=== PATIENT | female | born 1950 ===

== ENCOUNTER 2017-03-06 13:51 | Observation (INO) | payer MEDICARE, OTHER ==
[2017-03-06] MEDS ORDERED: Sodium Chloride 0.9% 1,000 ML IV STA (14:14)
--- NOTE | 2017-03-06 14:36 | ED PDOC ---
Syncope/Near Syncope/Dizziness Time Seen by Provider: 03/06/17 14:11 Chief Complaint (Nursing): Syncope Chief Complaint (Provider): syncope History Per: Patient History/Exam Limitations: no limitations Onset/Duration Of Symptoms: Mins (prior to arrival ) Activity At Onset Of Symptoms: Standing Additional Complaint(s): Ruby Mccann is a 67 year old female, with a previous medical history of hypertension, diabetes and hypercholesteolemia, who presents to the ED via EMS after a syncopal episode she sustained prior to arrival. Patient reports to standing outside in the hot weather for 45 minutes waiting for the bus and began to feel lightheaded; she passed out once she got on the bus for approximately 5-10 minutes according to her son with no compulsive activity noted. Patient denies any chest pain, shortness of breath, headache, focal weakness or changes in vision. She reports feeling fine prior to symptom onset. Pt was given oral glucose packets at the scene for possible hypoglycemia Of note, patient reports falling down 4 days ago while attempting to get out of bed and getting tangled in her sheets. She reports right knee pain from this fall. PMD: Aki Herron MD NIHSS Stroke Scale - Date/Time Evaluation Performed Date Performed: 03/06/17 - How Severe is the Stroke Level of Consciousness: 0=Alert LOC to Questions: 0=Both comments correct LOC to commands: 0=Obeys both correctly Best Gaze: 0=Normal Visual: 0=No visual loss Facial: 0=Normal Motor Arm - Left: 0=No drift Motor Arm - Right: 0=No drift Motor Leg - Left: 0=No drift Motor Leg - Right: 0=No drift Limb Ataxia: 0=Absent Sensory: 0=Normal Best Language: 0=No aphasia Dysarthia: 0=Normal articulation Extinction & Inattention (Neglect): 0=Normal, no object Score: 0 Past Medical History Reviewed: Historical Data, Nursing Documentation, Vital Signs Vital Signs: Last Vital Signs Temp 99.0 F 03/06/17 14:00 Pulse 79 03/06/17 14:00 Resp 16 03/06/17 14:00 BP 107/41 L 03/06/17 14:00 Pulse Ox 96 03/06/17 14:00 - Medical History PMH: Anxiety, Arthritis, Asthma, Diabetes, Fractures (LEFT RIB FX.), HTN, Hypercholesterolemia, Osteoporosis, Rheumatoid Arthritis Denies: HIV, Chronic Kidney Disease - Surgical History Surgical History: (x 3) - Family History Family History: States: Unknown Family Hx - Home Medications Home Medications: Ambulatory Orders Medication Instructions Recorded Lisinopril/Hydrochlorothiazide 1 tab PO DAILY 02/19/15 [Lisinopril-Hctz 10-12.5 mg Tab] MetFORMIN [glucoPHAGE] 1,000 mg PO DAILY 02/19/15 Nateglinide 120 mg PO AC 02/19/15 Omeprazole [Prilosec] 20 mg PO DAILY 02/19/15 Sitagliptin Phosphate [Januvia] 100 mg PO DAILY 02/19/15 Atorvastatin [Lipitor] 20 mg PO DAILY 03/29/16 DiphenhydrAMINE [Benadryl] 25 mg PO Q6H PRN 03/29/16 Folic Acid 1 mg PO DAILY 03/29/16 Insulin Detemir [Levemir] 15 unit SC QAM 03/29/16 Insulin Detemir [Levemir] 20 unit SC HS 03/29/16 Lidocaine 5% [Lidoderm] 1 patch TD DAILY PRN 03/29/16 Methotrexate 0.6 ml IM QWK 03/29/16 Multivit-Min/FA/Lycopen/Lutein 1 tab PO DAILY 03/29/16 [Centrum Silver Tablet] Pregabalin [Lyrica] 75 mg PO BID 03/29/16 Oxycodone HCl/Acetaminophen 1 each PO Q8 PRN #30 tablet 03/31/16 [Percocet 5-325 mg Tablet] - Allergies Allergies/Adverse Reactions: Allergies Allergy/AdvReac Type Severity Reaction Status Date / Time No Known Allergies Allergy Verified 03/29/16 14:43 Review of Systems ROS Statement: Except As Marked, All Systems Reviewed And Found Negative Eyes: Negative for: Vision Change Cardiovascular: Negative for: Chest Pain Respiratory: Negative for: Shortness of Breath Musculoskeletal: Positive for: Leg Pain (right knee pain ) Neurological: Negative for: Weakness, Numbness, Incoordination, Change in Speech , Confusion, Altered Mental Status, Headache Physical Exam - Reviewed Nursing Documentation Reviewed: Yes Vital Signs Reviewed: Yes - Physical Exam Appears: Positive for: Non-toxic, No Acute Distress. Negative for: Well (tired appearing ) Head Exam: Positive for: ATRAUMATIC, NORMAL INSPECTION, NORMOCEPHALIC Skin: Positive for: Warm, Dry, Pallor Eye Exam: Positive for: Normal appearance, EOMI, PERRL. Negative for: Nystagmus ENT: Positive for: Other (Dry mucous membranes ) Neck: Positive for: Normal, Painless ROM, Supple Cardiovascular/Chest: Positive for: Regular Rate, Rhythm, Chest Non Tender. Negative for: Tachycardia Respiratory: Positive for: Normal Breath Sounds. Negative for: Wheezing, Respiratory Distress Gastrointestinal/Abdominal: Positive for: Normal Exam, Bowel Sounds, Soft. Negative for: Tenderness Back: Positive for: Normal Inspection. Negative for: L CVA Tenderness, R CVA Tenderness, Vertebral Tenderness Extremity: Positive for: Normal ROM, Capillary Refill (< 2 seconds ), Swelling ( mild edema to the right knee), Other (ecchymotic area to the anterior right knee. no laxity noted ). Negative for: Tenderness, Pedal Edema, Calf Tenderness , Deformity Lymphatic: Negative for: Adenopathy Neurologic/Psych: Positive for: Alert, electrophysiology tech II-XII (intact ), Oriented (x 3), Cerebellar Tests (good ). Negative for: Motor/Sensory Deficits, Aphasia, Facial Droop - Laboratory Results Result Diagrams: 03/06/17 14:55 03/06/17 14:55 Interpretation Of Abn Labs: Hyperglycemia, elevated lactic acid. Consistent with dehydration. - ECG O2 Sat by Pulse Oximetry: 96 Medical Decision Making Medical Decision Making: Initial Impression: Syncope. Differentials include but are not limited to: dehydration, electrolyte abnormality, sepsis, heat stroke, ACS Initial Plan: * VBG shock panel * CT head w/o contrast * EKG * labs * magnesium * phosphorous * Troponin I * Troponin I Q8 * urine dipstick * PTT * PT * CXR * x-ray right knee * IV NS 1,000 ml at 1,000 ml/hr * blood culture * cardiac exercise physiologist cont * reevaluation Pt will need hospitalization for syncope in setting of multiple cardiac risk factors. Need to observe for possible cardiac event or ACS. Pending ER workup. Accession No. : [id number] Patient Name / ID : RONALD CARNEY / [id number] Exam Date : 03/06/2017 15:06:22 ( Approved ) Study Comment : Sex / Age : F / 67Y Creator : Roldan Archer Dictator : Roldan Archer Vacuum Cleaner Repairer : Screen Room Operator : Roldan Archer Approver2 : Report Date : 03/06/2017 15:36:02 My Comment : PROCEDURE: CT HEAD WITHOUT CONTRAST. HISTORY: syncope COMPARISON: Comparison is made to the previous study dated 03/29/2016 TECHNIQUE: Axial computed tomography images were obtained through the head/brain without intravenous contrast. Radiation dose: Total exam DLP = 763.38 mGy-cm. This CT exam was performed using one or more of the following dose reduction techniques: Automated exposure control, adjustment of the mA and/or kV according to patient size, and/or use of iterative reconstruction technique. FINDINGS: HEMORRHAGE: No intracranial hemorrhage. BRAIN: Foci of encephalomalacia at the bilateral basal ganglia are again seen. No atrophy or chronic microvascular ischemic changes. VENTRICLES: Unremarkable. No hydrocephalus. CALVARIUM: Unremarkable. PARANASAL SINUSES: Unremarkable as visualized. No significant inflammatory changes. MASTOID AIR CELLS: Unremarkable as visualized. No inflammatory changes. OTHER FINDINGS: None. IMPRESSION: No evidence of acute intracranial hemorrhage territorial infarct mass effect or midline shift. Old bilateral basal ganglia lacunar infarcts. Mild atrophy. Scribe Attestation: Documented by Kym Ulloa, acting as a scribe for Cecily Alvarado MD. Provider Scribe Attestation: All medical record entries made by the Scribe were at my direction and personally dictated by me. I have reviewed the chart and agree that the record accurately reflects my personal performance of the history, physical exam, medical decision making, and the department course for this patient. I have also personally directed, reviewed, and agree with the discharge instructions and disposition. Disposition - Clinical Impression Clinical Impression: Heat syncope, Diabetes mellitus type 2, uncontrolled Discussed With : Cherelle Gonzalez Doctor Will See Patient In The: ED Counseled Patient/Family Regarding: Studies Performed, Diagnosis - Disposition Disposition Time: 14:15 Condition: GUARDED - Pt Status Changed To: Hospital Disposition Of: Observation - POA Present On Arrival: Falls Or Trauma, Poor Glycemic Control
[2017-03-06 15:09] LABS: BASO # 0.1 K/uL (0.0-0.2); BASO % 0.6 % (0.0-2.0); EOS # 0.3 K/uL (0.0-0.7); EOS % 3.2 % (0.0-4.0); HEMATOCRIT 38.2 % (34.0-47.0); LYMPH # 1.1 K/uL (1.0-4.3); LYMPH % 10.3 % (20.0-40.0); MEAN CELL VOLUME 91.3 fl (81.0-99.0); MEAN CORPUSCULAR HEMOGLOBIN 30.1 pg (27.0-31.0); MEAN PLATELET VOLUME 7.8 fl (7.2-11.7); MONO # 0.6 K/uL (0.0-0.8); MONO % 5.4 % (0.0-10.0); NEUT # 8.6 K/uL (1.8-7.0); NEUT % 80.5 % (50.0-75.0); RED CELL DISTRIBUTION WIDTH 13.1 % (11.5-14.5); WHITE BLOOD COUNT 10.6 K/uL (4.8-10.8)
[2017-03-06 15:10] LABS: VENOUS BLOOD GAS BASE EXCESS 2.4 mmol/L (0.0-2.0); VENOUS BLOOD GAS PCO2 58 mmHg (40-60); VENOUS BLOOD PH 7.32 (7.32-7.43)
[2017-03-06 15:33] LABS: ALB/GLOB RATIO 1.3 (1.0-2.1); ALKALINE PHOSPHATASE 111 U/L (38-126); ALT/SGPT 33 U/L (9-52); AST/SGOT 24 U/L (14-36); BILIRUBIN,TOTAL 0.6 mg/dl (0.2-1.3); BLOOD UREA NITROGEN 18 mg/dl (7-17); CALCIUM 9.5 mg/dL (8.4-10.2); CARBON DIOXIDE 28 mmol/L (22-30); CHLORIDE 99 mmol/L (98-107); GFR AFRICAN-AMERICAN 60; GLUCOSE,RANDOM 393 mg/dL (65-105); MAGNESIUM 1.9 MG/DL (1.6-2.3); PHOSPHOROUS 4.5 mg/dl (2.5-4.5); POTASSIUM 4.6 MMOL/L (3.6-5.0); SODIUM 138 mmol/l (132-148); TOTAL PROTEIN 7.3 G/DL (6.3-8.2)
--- NOTE | 2017-03-06 15:38 | CT ---
PROCEDURE: CT HEAD WITHOUT CONTRAST. HISTORY: syncope COMPARISON: Comparison is made to the previous study dated 03/29/2016 TECHNIQUE: Axial computed tomography images were obtained through the head/brain without intravenous contrast. Radiation dose: Total exam DLP = 763.38 mGy-cm. This CT exam was performed using one or more of the following dose reduction techniques: Automated exposure control, adjustment of the mA and/or kV according to patient size, and/or use of iterative reconstruction technique. FINDINGS: HEMORRHAGE: No intracranial hemorrhage. BRAIN: Foci of encephalomalacia at the bilateral basal ganglia are again seen. No atrophy or chronic microvascular ischemic changes. VENTRICLES: Unremarkable. No hydrocephalus. CALVARIUM: Unremarkable. PARANASAL SINUSES: Unremarkable as visualized. No significant inflammatory changes. MASTOID AIR CELLS: Unremarkable as visualized. No inflammatory changes. OTHER FINDINGS: None. IMPRESSION: No evidence of acute intracranial hemorrhage territorial infarct mass effect or midline shift. Old bilateral basal ganglia lacunar infarcts. Mild atrophy.
--- NOTE | 2017-03-06 15:57 | RAD ---
PROCEDURE: Right Knee Radiographs. HISTORY: pain s/p fall COMPARISON: 01/08/2015 FINDINGS: BONES: No acute fracture. JOINTS: Stable medial compartment narrowing. JOINT EFFUSION: None. OTHER FINDINGS: None. IMPRESSION: No acute findings related to/accounting for the clinical presentation. No significant interval change compared to the prior examination(s).
[2017-03-06 15:59] LABS: PARTIAL THROMBOPLASTIN TIME 25.8 Seconds (25.6-37.1)
--- NOTE | 2017-03-06 16:45 | RAD ---
HISTORY: syncope COMPARISON: Comparison is made to the previous study dated 01/18/2017 FINDINGS: LUNGS: No active pulmonary disease. PLEURA: No significant pleural effusion identified, no pneumothorax apparent. CARDIOVASCULAR: Normal. OSSEOUS STRUCTURES: No significant abnormalities. VISUALIZED UPPER ABDOMEN: Normal. OTHER FINDINGS: None. IMPRESSION: No active disease.
[2017-03-06 18:44] VITALS: BMI 34.2
[2017-03-06] MEDS ORDERED: Glucagon Recombinant 1 mg Inj IM PRN (18:57)
[2017-03-06] MEDS ORDERED: Dextrose 50% SYRINGE Inj (50 ml) IV PRN (18:57)
--- NOTE | 2017-03-06 20:59 | CP.PCM.HP ---
History of Present Illness - History of Present Illness History of Present Illness: 67 yr old F brought by ambulance to ED after syncopal episode after walking into the bus. Patient reports she was standing outside in the heat waiting for the bus for 45 min and was starting to feel lightheaded, she loss consciousness once inside the bus and her son who was with her at the time reported the LOC lasted 5-10 min. Before arrival to the ED, EMS gave her glucose for possible hypoglycemia. She reports she had taken her medications as prescribed and had a meal 2 hrs prior to her syncopal episode. She denies SOB, chest pain, dizziness, weakness, change in vision, nausea or vomiting. Patient has PMHx of HTN, IDDM, CAD (STEMI 10/2016 with complete occlusion of small left Circumflex artery s/p cath-no stents were placed), GERD, HLD, neuropathy, rheumatoid arthritis and anxiety. Patient attributes right knee and left shoulder bruises to a recent fall out of bed after she became entangled in her sheets. PMD: Dr. Herron at [facility] (last visit 01/18/17) Specialists: Fire Safety Director Ramsey Melissa (last visit 01/18/17 ) PMHx: HTN, IDDM, CAD (STEMI 10/2016 with complete occlusion of small left Circumflex artery s/p cath-no stents were placed), GERD, HLD, neuropathy, rheumatoid arthritis and anxiety PSurgHx: x 3, hysterectomy, recent right foot surgery to remove hardware, multiple bilateral foot surgeries SocHx: denies smoking, Etoh, drugs; lives with son Meds: Carvedilol 6.25mg PO QD, Plavix 75mg PO QD, Atorvastatin 80mg PO QD, ASA 81mg PO QD, Lisinopril 5mg PO QD, Gabapentin 300mg PO TID, Metformin 1000 mg PO BID, Nateglinide 120mg PO TID before meals, Insulin Detemir 30 units SC BID, Duloxetine 30mg PO QD, Pantoprazole 40mg PO QD, Methotrexate 2.5mg PO QD Allergies: NKDA ED Course: -VS: BP 107/41 mmHg, P79, T 99.0 F, R16, O2 sat 96% on room air -EKG: Sinus rhythm with premature atrial complexes, no ST-T changes -CT head: No evidence of ICH -CXR: no active disease -Labs: Troponin negative x 1, CBC wnl, CMP wnl, coags wnl -ED tx: NS 1L bolus Present on Admission - Present on Admission Any Indicators Present on Admission: Yes History of DVT/PE: No History of Uncontrolled Diabetes: Yes Urinary Catheter: No Decubitus Ulcer Present: No Review of Systems - Review of Systems All systems: reviewed and no additional remarkable complaints except (for what is mentioned in the HPI) Past Patient History - Infectious Disease Hx of Infectious Diseases: None - Past Medical History & Family History Past Medical History?: Yes - Past Social History Smoking Status: Never Smoked - CARDIAC Hx Cardiac Disorders: Yes Hx Hypercholesterolemia: Yes Hx Hypertension: Yes - PULMONARY Hx Respiratory Disorders: No - NEUROLOGICAL Hx Neurological Disorder: Yes Other/Comment: neuropathy - HEENT Hx HEENT Problems: Yes Hx Cataracts: Yes (1989 surgery done) - RENAL Hx Chronic Kidney Disease: No - ENDOCRINE/METABOLIC Hx Endocrine Disorders: Yes Hx Diabetes Mellitus Type 2: Yes - HEMATOLOGICAL/ONCOLOGICAL Hx Blood Disorders: No Hx AIDS: No Hx Human Immunodeficiency Virus (HIV): No - INTEGUMENTARY Hx Dermatological Problems: No - MUSCULOSKELETAL/RHEUMATOLOGICAL Hx Falls: Yes (Last Sunday2016) - GASTROINTESTINAL Hx Gastrointestinal Disorders: No - GENITOURINARY/GYNECOLOGICAL Hx Genitourinary Disorders: Yes - PSYCHIATRIC Hx Psychophysiologic Disorder: No Hx Substance Use: No - SURGICAL HISTORY Hx Surgeries: Yes Hx Section: Yes (X3) Hx Herniorrhaphy: Yes (VENTRAL) Hx Hysterectomy: Yes Other/Comment: Right toe surgery January - ANESTHESIA Hx Anesthesia: Yes Hx Anesthesia Reactions: No Hx Malignant Hyperthermia: No Meds Allergies/Adverse Reactions: Allergies Allergy/AdvReac Type Severity Reaction Status Date / Time No Known Allergies Allergy Verified 03/29/16 14:43 Physical Exam - Constitutional Appears: Well (obese), Non-toxic, No Acute Distress - Head Exam Head Exam: ATRAUMATIC, NORMOCEPHALIC - Eye Exam Eye Exam: EOMI, PERRL - ENT Exam ENT Exam: Mucous Membranes Moist - Neck Exam Neck exam: Positive for: Full Rom. Negative for: Lymphadenopathy - Respiratory Exam Respiratory Exam: Clear to Auscultation Bilateral, NORMAL BREATHING PATTERN. absent: Rales, Rhonchi - Cardiovascular Exam Cardiovascular Exam: REGULAR RHYTHM, +S1, +S2. absent: Gallop - GI/Abdominal Exam GI & Abdominal Exam: Normal Bowel Sounds, Soft (obese). absent: Distended, Tenderness - Extremities Exam Extremities exam: Positive for: full ROM (left posterior shoulder and right knee bruise-nontender; right foot wrapped in [place] , no nail on right big toe). Negative for: calf tenderness, joint swelling, pedal edema - Back Exam Back exam: absent: CVA tenderness (L), CVA tenderness (R) - Neurological Exam Neurological exam: Alert, CN II-XII Intact, Oriented x3 - Psychiatric Exam Psychiatric exam: Normal Affect, Normal Mood Results - Vital Signs Recent Vital Signs: Last Vital Signs Temp 98.5 F 03/06/17 20:14 Pulse 69 03/06/17 20:14 Resp 18 03/06/17 20:14 BP 118/64 03/06/17 20:14 Pulse Ox 95 03/06/17 20:14 - Labs Result Diagrams: 03/06/17 14:55 03/06/17 14:55 Assessment & Plan - Assessment and Plan (Free Text) Assessment: 67 yr old F admitted for syncopal episode s/p standing outside in the heat waiting for the bus. IN ED she was found to be hypotensive, EKG, CXR and CT head wnl. Patient multiple co-morbidities including HTN, IDDM, CAD (STEMI 2016 with complete occlusion of small left Circumflex artery s/p cath-no stents were placed), GERD, HLD, neuropathy, rheumatoid arthritis and anxiety. Patient has right knee and left shoulder bruises due to a recent fall out of bed after she became entangled in her sheets. Patient is currently stable. Plan: 1. Syncope -stable, hypotension improved s/p 1L NS bolus -likely secondary to heat stroke vs ACS (less likely) -recent STEMI (10/2016 with complete occlusion of small left Circumflex artery s/ p cath-no stents were placed), medically optimized by cardiology Dr. Mustafa -EKG wnl, troponin negative x 1, CXR and CT head wnl -Echo 03/30/16: Normal LV size and wall thickness, LVEF wnl -Duplex bilateral carotid arteries 03/29/16: No hemodynamically significant stenosis identified in the extracranial internal carotid arteries -admitted to [facility] -f/u serial troponin 2. CAD s/p recent STEMI -stable -recent STEMI (10/2016 with complete occlusion of small left Circumflex artery s/ p cath-no stents were placed), medically optimized by cardiology Dr. Mustafa -continue home meds (Carvedilol 6.25mg PO QD, Plavix 75mg PO QD, Atorvastatin 80mg PO QD, ASA 81mg PO QD, Lisinopril 5mg PO QD) 3. HTN -controlled, chronic -continue home meds (Lisinopril 5mg PO QD) 4. IDDM -uncontrolled, HbA1c 9.9 (12/04/16) -hold home meds for now (Metformin 1000 mg PO BID, Nateglinide 120mg PO TID before meals, Insulin Detemir 30 units SC BID) -Humulin Regular SC ACHS -moderate dose protocol -Hypoglycemia protocol -Moderate carbohydrate/heart healthy diet 5. Neuropathy -stable, chronic -continue home med (Gapapentin 300mg PO TID) 6. Anxiety -chronic, stable -continue home med (Duloxetine 30mg PO QD) 7. GI/DVT prophylaxis -Lovenox 40mg SC QD -Pantoprazole 40mg PO QD - Date & Time Date: 03/06/17 Time: 16:20
[2017-03-06] MEDS: Insulin Regular 100 units/ml SC SCH (22:20)
[2017-03-06 23:59] VITALS: O2SAT 97
[2017-03-07 05:27] VITALS: TEMP 98.4
[2017-03-07] MEDS: Insulin Regular 100 units/ml SC SCH ×2 (06:31→13:10)
[2017-03-07 06:45] LABS: HEMATOCRIT 36.9 % (34.0-47.0); MEAN CORPUSCULAR HGB CONC 32.6 g/dL (33.0-37.0); WHITE BLOOD COUNT 7.6 K/uL (4.8-10.8)
[2017-03-07 07:11] LABS: BLOOD UREA NITROGEN 14 mg/dl (7-17); CALCIUM 9.4 mg/dL (8.4-10.2); CARBON DIOXIDE 29 mmol/L (22-30); CHLORIDE 102 mmol/L (98-107); CHOLESTEROL 143 mg/dL (0-199); GFR AFRICAN-AMERICAN > 60; GLUCOSE,RANDOM 262 mg/dL (65-105); POTASSIUM 4.7 MMOL/L (3.6-5.0); SODIUM 139 mmol/l (132-148)
[2017-03-07 08:36] VITALS: BP 111/71
[2017-03-07 08:57] VITALS: RESP 20
[2017-03-07] MEDS ORDERED: Pantoprazole 40 mg EC Tab PO SCH (09:00)
[2017-03-07] MEDS ORDERED: Enoxaparin 40 mg Syringe SC SCH (09:00)
--- NOTE | 2017-03-07 10:59 | CP.PCM.DIS ---
Provider - Provider Date of Admission: 03/06/17 15:41 Attending physician: Adrianna Anaya MD Primary care physician: Aki Dhillon Time Spent in preparation of Discharge (in minutes): 30 Diagnosis - Discharge Diagnosis (1) Heat syncope Status: Resolved Priority: Low Hospital Course - Lab Results Lab Results: Most Recent Lab Values WBC 7.6 K/uL (4.8-10.8) 03/07/17 05:15 RBC 4.01 Mil/uL (3.80-5.20) 03/07/17 05:15 Hgb 12.0 g/dL (12.0-16.0) 03/07/17 05:15 Hct 36.9 % (34.0-47.0) 03/07/17 05:15 MCV 92.0 fl (81.0-99.0) 03/07/17 05:15 MCH 30.0 pg (27.0-31.0) 03/07/17 05:15 MCHC 32.6 g/dL (33.0-37.0) L 03/07/17 05:15 RDW 13.0 % (11.5-14.5) 03/07/17 05:15 Plt Count 274 K/uL (130-400) 03/07/17 05:15 MPV 7.8 fl (7.2-11.7) 03/06/17 14:55 Neut % (Auto) 80.5 % (50.0-75.0) H 03/06/17 14:55 Lymph % (Auto) 10.3 % (20.0-40.0) L 03/06/17 14:55 [place] % (Auto) 5.4 % (0.0-10.0) 03/06/17 14:55 Eos % (Auto) 3.2 % (0.0-4.0) 03/06/17 14:55 Baso % (Auto) 0.6 % (0.0-2.0) 03/06/17 14:55 Neut # 8.6 K/uL (1.8-7.0) H 03/06/17 14:55 Lymph # 1.1 K/uL (1.0-4.3) 03/06/17 14:55 [place] # 0.6 K/uL (0.0-0.8) 03/06/17 14:55 Eos # 0.3 K/uL (0.0-0.7) 03/06/17 14:55 Baso # 0.1 K/uL (0.0-0.2) 03/06/17 14:55 PT 11.2 Seconds (9.8-13.1) 03/06/17 14:55 INR 1.0 (0.9-1.2) 03/06/17 14:55 APTT 25.8 Seconds (25.6-37.1) 03/06/17 14:55 pO2 17 mm/Hg (30-55) L 03/06/17 14:34 VBG pH 7.32 (7.32-7.43) 03/06/17 14:34 VBG pCO2 58 mmHg (40-60) 03/06/17 14:34 VBG HCO3 25.1 mmol/L 03/06/17 14:34 VBG Total CO2 31.7 mmol/L (22-28) H 03/06/17 14:34 VBG O2 Sat (Calc) 33.2 % (40-65) L 03/06/17 14:34 VBG Base Excess 2.4 mmol/L (0.0-2.0) H 03/06/17 14:34 VBG Potassium 4.8 mmol/L (3.6-5.2) 03/06/17 14:34 Sodium 137.0 mmol/L (132-148) 03/06/17 14:34 Chloride 101.0 mmol/L (98-107) 03/06/17 14:34 Glucose 361 mg/dL (65-105) H 03/06/17 14:34 Lactate 2.5 mmol/L (0.7-2.1) H 03/06/17 14:34 FiO2 21.0 % 03/06/17 14:34 Sodium 139 mmol/l (132-148) 03/07/17 05:15 Potassium 4.7 MMOL/L (3.6-5.0) 03/07/17 05:15 Chloride 102 mmol/L (98-107) 03/07/17 05:15 Carbon Dioxide 29 mmol/L (22-30) 03/07/17 05:15 Anion Gap 13 (10-20) 03/07/17 05:15 BUN 14 mg/dl (7-17) 03/07/17 05:15 Creatinine 0.8 mg/dL (0.7-1.2) 03/07/17 05:15 Est GFR ( Amer) > 60 03/07/17 05:15 Est GFR (Non-Af Amer) > 60 03/07/17 05:15 POC Glucose (mg/dL) 286 mg/dL (65-110) H 03/07/17 04:52 Random Glucose 262 mg/dL (65-105) H 03/07/17 05:15 Calcium 9.4 mg/dL (8.4-10.2) 03/07/17 05:15 Phosphorus 4.5 mg/dl (2.5-4.5) 03/06/17 14:55 Magnesium 1.9 MG/DL (1.6-2.3) 03/06/17 14:55 Total Bilirubin 0.6 mg/dl (0.2-1.3) 03/06/17 14:55 AST 24 U/L (14-36) 03/06/17 14:55 ALT 33 U/L (9-52) 03/06/17 14:55 Alkaline Phosphatase 111 U/L (38-126) 03/06/17 14:55 Troponin I < 0.0120 ng/mL (0.00-0.120) 03/07/17 05:15 Total Protein 7.3 G/DL (6.3-8.2) 03/06/17 14:55 Albumin 4.1 g/dL (3.5-5.0) 03/06/17 14:55 Globulin 3.2 gm/dL (2.2-3.9) 03/06/17 14:55 Albumin/Globulin Ratio 1.3 (1.0-2.1) 03/06/17 14:55 Triglycerides 131 mg/DL (0-149) 03/07/17 05:15 Cholesterol 143 mg/dL (0-199) 03/07/17 05:15 LDL Cholesterol Direct 65 mg/dL (0-129) 03/07/17 05:15 HDL Cholesterol 46 MG/DL (30-70) 03/07/17 05:15 Venous Blood Potassium 4.8 mmol/L (3.6-5.2) 03/06/17 14:34 - Hospital Course Hospital Course: 67 yr old F admitted for syncope, was found to be hypotensive with normal EKG, troponin negative x 2, CBC/CMP and coags wnl, CT head negative for ICH. Patients BP improved with NS 1L bolus but remained trending low. Patient was discharged with decrease in home med dose of Carvedilol (now 3.125mg PO QD) and decreased Lisinopril (now 2.5 mg PO QD) and to resume rest of home meds. Follow up appt with Dr. Herron is for 03/28/17 at 10:40am, follow up with community mental health social worker Dr. Bonds as scheduled. - Date & Time of H&P Date of H&P: 03/06/17 Time of H&P: 20:47 Discharge Exam - Head Exam Head Exam: ATRAUMATIC, NORMOCEPHALIC - Eye Exam Eye Exam: EOMI, PERRL - ENT Exam ENT Exam: Mucous Membranes Moist - Neck Exam Neck exam: Full Rom - Respiratory Exam Respiratory Exam: Clear to PA & Lateral, NORMAL BREATHING PATTERN - Cardiovascular Exam Cardiovascular Exam: REGULAR RHYTHM, +S1, +S2 - GI/Abdominal Exam GI & Abdominal Exam: Normal Bowel Sounds, Soft (obese). absent: Distended, Tenderness - Extremities Exam Extremities exam: full ROM - Back Exam Back exam: absent: CVA tenderness (L), CVA tenderness (R) - Neurological Exam Neurological exam: Alert, CN II-XII Intact, Oriented x3 - Psychiatric Exam Psychiatric exam: Normal Affect, Normal Mood - Skin Skin Exam: Dry, Normal Color, Warm Discharge Plan - Discharge Medications Prescriptions: Carvedilol [Coreg] 3.125 mg PO DAILY #30 tab Lisinopril 2.5 mg PO DAILY #30 tablet - Follow Up Plan Condition: GUARDED Disposition: HOME/ ROUTINE Instructions: Dehydration in Children (DC), Heatstroke (DC) Additional Instructions: -Follow up with [facility]. Herron at [facility] on March -Follow up with your community mental health social worker Dr. Bonds as scheduled Referrals: Ramsey Bonds MD [Medical Doctor] - Aki Herron MD [Family Provider] - Clinical Quality Measures - CQM - VTE Did patient receive overlap therapy during hosptialization?: Yes If yes, what was given to the patient?: Lovenox 40mg SC QD, SCD's - Date & Time of Discharge Summary Date of Discharge Summary: 03/07/17 Time of Discharge Summary: 13:00
[2017-03-07 14:03] VITALS: PULSE 82
--- NOTE | 2017-03-07 15:28 | CARD ---
APPROVED REPORT EKG Measurement Heart [id number] <Conclusion> Sinus rhythm with premature atrial complexes T wave abnormality, consider lateral ischemia Abnormal ECG
== END 2017-03-07 13:20 | disposition home or self-care (01) ==
LOC: H.ER 13:51 → H.ERHOLD 15:41 → H.TEL 17:40
PROVIDERS: ADMIT Family Medicine Geriatric Medicine; ATTEND Family Medicine Geriatric Medicine
DX: T67.1XXA Heat syncope, initial encounter (principal); X58.XXXA Exposure to other specified factors, initial encounter; E11.65 Type 2 diabetes mellitus with hyperglycemia; E78.00 Pure hypercholesterolemia, unspecified; I10 Essential (primary) hypertension; I25.10 Atherosclerotic heart disease of native coronary artery without angina pectoris; I25.2 Old myocardial infarction; J45.909 Unspecified asthma, uncomplicated; M06.9 Rheumatoid arthritis, unspecified; M81.0 Age-related osteoporosis without current pathological fracture; K21.9 Gastro-esophageal reflux disease without esophagitis; E78.5 Hyperlipidemia, unspecified; Z98.61 Coronary angioplasty status; Z79.4 Long term (current) use of insulin; F41.9 Anxiety disorder, unspecified; G62.9 Polyneuropathy, unspecified; I95.9 Hypotension, unspecified; M19.90 Unspecified osteoarthritis, unspecified site
CPT/HCPCS: 36415; 70450; 71010; 73562; 80048; 80053; 80061; 82803; 82948; 83036; 83735; 84100; 84484; 85025; 85027; 85610; 85730; 87040; 93005; 97161; 99285; G0378; G8978; G8979; G8980; J1650; J7040

== ENCOUNTER 2017-08-29 23:59 | Emergency (ER) | payer MEDICARE, OTHER ==
[2017-08-30] VITALS: BMI 34.2
[2017-08-30 00:31] VITALS: RESP 18
--- NOTE | 2017-08-30 01:14 | ED PDOC ---
HPI: Hypertension/Hypotension Time Seen by Provider: 08/30/17 00:29 Chief Complaint (Nursing): High Blood Pressure Chief Complaint (Provider): High Blood Pressure History Per: Patient History/Exam Limitations: no limitations Onset/Duration Of Symptoms: Hrs Current Symptoms Are (Timing): Still Present Additional Complaint(s): Ruby Mccann is a 67 year old female with a history of CAD, HTN, DM, TX, and stroke that presents to the ED with a chief complaint of elevated blood pressure. Patient reports that when she checked her blood pressure at home the systolic reading was 180. She states that she was also seen by her PMD Dr. Aki Herron, who gav her an extra dose of Lisinopril due to elevated BP in his office. She denies any associated chest pain, shortness of breath, diarrhea , vomiting, or fever. Patient states that she was simply worried about her elevated blood pressure, prompting her ED visit. Past Medical History Reviewed: Historical Data, Nursing Documentation, Vital Signs Vital Signs: Last Vital Signs Temp 99 F 08/30/17 00:27 Pulse 97 H 08/30/17 00:27 Resp 18 08/30/17 00:27 BP 180/95 H 08/30/17 00:27 Pulse Ox 98 08/30/17 00:27 - Medical History PMH: Anxiety, Arthritis, Asthma, Diabetes, Fractures (LEFT RIB FX.), HTN, Hypercholesterolemia, Osteoporosis, Rheumatoid Arthritis Denies: HIV, Chronic Kidney Disease - Surgical History Surgical History: (x 3) Other surgeries: right foot surgery - Family History Family History: States: Unknown Family Hx - Social History Current smoker - smoking cessation education provided: No Alcohol: None Drugs: Denies - Home Medications Home Medications: Ambulatory Orders Medication Instructions Recorded MetFORMIN [glucoPHAGE] 1,000 mg PO BID 02/19/15 Nateglinide 120 mg PO DAILY 02/19/15 Insulin Detemir [Levemir] 30 unit SC BID 03/29/16 Lidocaine 5% [Lidoderm] 1 patch TD DAILY PRN 03/29/16 Albuterol HFA [Ventolin HFA 90 2 puff IH Q4H PRN 03/06/17 mcg/actuation (8 g)] Aspirin [Ecotrin] 81 mg PO DAILY 03/06/17 Atorvastatin Calcium [Lipitor] 80 mg PO DAILY 03/06/17 Clopidogrel [Plavix] 75 mg PO DAILY 03/06/17 DULoxetine [Cymbalta] 30 mg PO HS 03/06/17 Econazole 1% [Spectazole Cr] 1 appl TOP BID 03/06/17 Etanercept [Enbrel] 50 mg SC QWK 03/06/17 Gabapentin [Neurontin] 300 mg PO QPM 03/06/17 Oxycodone HCl/Acetaminophen 1 tab PO Q12H PRN 03/06/17 [Percocet 5-325 mg Tablet] Pantoprazole Sodium [Protonix] 40 mg PO DAILY 03/06/17 Carvedilol [Coreg] 3.125 mg PO DAILY #30 tab 03/07/17 Lisinopril 2.5 mg PO DAILY #30 tablet 03/07/17 - Allergies Allergies/Adverse Reactions: Allergies Allergy/AdvReac Type Severity Reaction Status Date / Time No Known Allergies Allergy Verified 03/29/16 14:43 Review of Systems Constitutional: Positive for: Other (elevated BP). Negative for: Fever Cardiovascular: Negative for: Chest Pain Respiratory: Negative for: Shortness of Breath Gastrointestinal: Negative for: Vomiting, Diarrhea Physical Exam - Reviewed Nursing Documentation Reviewed: Yes Vital Signs Reviewed: Yes - Physical Exam Appears: Positive for: Non-toxic, No Acute Distress Head Exam: Positive for: ATRAUMATIC, NORMOCEPHALIC Skin: Positive for: Normal Color, Warm Eye Exam: Positive for: Normal appearance, EOMI, PERRL Neck: Positive for: Normal, Painless ROM Cardiovascular/Chest: Positive for: Regular Rate, Rhythm. Negative for: Murmur Respiratory: Positive for: Normal Breath Sounds. Negative for: Wheezing Gastrointestinal/Abdominal: Positive for: Normal Exam, Soft. Negative for: Tenderness Back: Positive for: Normal Inspection. Negative for: L CVA Tenderness, R CVA Tenderness Extremity: Positive for: Normal ROM. Negative for: Tenderness, Deformity Neurologic/Psych: Positive for: Alert, Oriented. Negative for: Motor/Sensory Deficits - ECG O2 Sat by Pulse Oximetry: 98 (RA) Pulse Ox Interpretation: Normal Medical Decision Making Medical Decision Making: Impression: 67 year old female with elevated blood pressure and history of hypertension, asymptomatic upon arrival to ED Plan: * Blood pressure spontaneously normalized while in ED. Patient is stable for discharge home. Scribe Attestation: Documented by Sara Morocho, acting as a scribe for Rogelio Buenrostro MD. Provider Scribe Attestation: All medical record entries made by the Scribe were at my direction and personally dictated by me. I have reviewed the chart and agree that the record accurately reflects my personal performance of the history, physical exam, medical decision making, and the department course for this patient. I have also personally directed, reviewed, and agree with the discharge instructions and disposition. Disposition - Clinical Impression Clinical Impression: Hypertension - Patient ED Disposition Is Patient to be Admitted: No - Disposition Referrals: Aki Herron MD [Primary Care Provider] - Disposition: Routine/Home Disposition Time: 01:10 Condition: STABLE
[2017-08-30 06:28] VITALS: PULSE 75; TEMP 98.8; O2SAT 97
[2017-08-30 06:29] VITALS: BP 128/68
--- NOTE | 2017-08-30 10:30 | CARD ---
APPROVED REPORT EKG Measurement Heart [id number] [id number] <Conclusion> Normal sinus rhythm with sinus arrhythmia Normal ECG artefact present
== END 2017-08-30 06:29 | disposition home or self-care (01) ==
LOC: H.ER 23:59
DX: I10 Essential (primary) hypertension (principal); E11.9 Type 2 diabetes mellitus without complications; E78.00 Pure hypercholesterolemia, unspecified; F41.9 Anxiety disorder, unspecified; I25.10 Atherosclerotic heart disease of native coronary artery without angina pectoris; J45.909 Unspecified asthma, uncomplicated; M06.9 Rheumatoid arthritis, unspecified; Z79.4 Long term (current) use of insulin; Z79.82 Long term (current) use of aspirin; Z86.73 Personal history of transient ischemic attack (TIA), and cerebral infarction without residual deficits

== ENCOUNTER 2018-07-02 09:22 | Observation (INO) | payer MEDICARE, OTHER ==
[2018-07-02] MEDS ORDERED: Sodium Chloride 0.9% 1,000 ML IV STA (09:25)
--- NOTE | 2018-07-02 09:34 | ED PDOC ---
Syncope/Near Syncope/Dizziness Time Seen by Provider: 07/02/18 09:24 Chief Complaint (Provider): Dizziness History Per: Patient History/Exam Limitations: no limitations Onset/Duration Of Symptoms: Hrs (prior to arrival) Fall Associated With With Symptoms: No Additional Complaint(s): Ruby Mccann is a 68 year old female, with a past medical history of diabetes, who was brought to the emergency department after ED staff responded to an MEDICAL CHEMIST in lab. Patient became dizzy, diaphoretic, nauseous and vomited. Symptoms started prior to having blood drawn. She received PO orange juice while in lab. Accucheck was 174 after administration of orange juice. Patient denies any chest pain or palpitations. No further medical complaints. PMD: None provided. Past Medical History Reviewed: Historical Data, Nursing Documentation, Vital Signs - Medical History PMH: Anxiety, Arthritis, Asthma, Diabetes, Fractures (LEFT RIB FX.), HTN, Hypercholesterolemia, Osteoporosis, Rheumatoid Arthritis Denies: HIV, Chronic Kidney Disease - Surgical History Surgical History: (x 3) - Family History Family History: States: Unknown Family Hx - Immunization History Hx Tetanus Toxoid Vaccination: No Hx Influenza Vaccination: No Hx Pneumococcal Vaccination: No - Home Medications Home Medications: Ambulatory Orders Medication Instructions Recorded MetFORMIN [glucoPHAGE] 500 mg PO BID 02/19/15 Nateglinide 120 mg PO DAILY 02/19/15 Insulin Detemir [Levemir] 30 unit SC BID 03/29/16 Lidocaine 5% [Lidoderm] 1 patch TD DAILY PRN 03/29/16 Albuterol HFA [Ventolin HFA 90 2 puff IH Q4H PRN 03/06/17 mcg/actuation (8 g)] Aspirin [Ecotrin] 81 mg PO DAILY 03/06/17 Atorvastatin Calcium [Lipitor] 80 mg PO DAILY 03/06/17 Clopidogrel [Plavix] 75 mg PO DAILY 03/06/17 DULoxetine [Cymbalta] 30 mg PO HS 03/06/17 Econazole 1% [Spectazole Cr] 1 appl TOP BID 03/06/17 Etanercept [Enbrel] 50 mg SC QWK 03/06/17 Gabapentin [Neurontin] 300 mg PO QPM 03/06/17 Oxycodone HCl/Acetaminophen 1 tab PO Q12H PRN 03/06/17 [Percocet 5-325 mg Tablet] Pantoprazole Sodium [Protonix] 40 mg PO DAILY 03/06/17 Carvedilol [Coreg] 3.125 mg PO DAILY #30 tab 03/07/17 Lisinopril 2.5 mg PO DAILY #30 tablet 03/07/17 - Allergies Allergies/Adverse Reactions: Allergies Allergy/AdvReac Type Severity Reaction Status Date / Time No Known Allergies Allergy Verified 04/16/18 14:22 Review of Systems ROS Statement: Except As Marked, All Systems Reviewed And Found Negative Cardiovascular: Negative for: Chest Pain, Palpitations Gastrointestinal: Positive for: Nausea, Vomiting Neurological: Positive for: Dizziness Physical Exam - Reviewed Nursing Documentation Reviewed: Yes Vital Signs Reviewed: Yes - Physical Exam Appears: Positive for: No Acute Distress Head Exam: Positive for: ATRAUMATIC, NORMAL INSPECTION, NORMOCEPHALIC Skin: Positive for: Normal Color, Diaphoresis Eye Exam: Positive for: Normal appearance, EOMI, PERRL Cardiovascular/Chest: Positive for: Regular Rate, Rhythm (60s bpm). Negative for: Murmur Respiratory: Positive for: Normal Breath Sounds (clear bilaterally). Negative for: Respiratory Distress Gastrointestinal/Abdominal: Positive for: Normal Exam, Soft. Negative for: Tenderness, Guarding, Rebound Back: Positive for: Normal Inspection. Negative for: Vertebral Tenderness Extremity: Positive for: Normal ROM (upper and lower extremities). Negative for: Deformity, Swelling Neurologic/Psych: Positive for: Alert (responding to questions ), Oriented. Negative for: Motor/Sensory Deficits (no focal deficits) - Laboratory Results Result Diagrams: 07/02/18 10:01 07/02/18 10:01 Medical Decision Making Medical Decision Making: Time: 09:24 Initial Plan: --EKG --CMP --Troponin I --CBC w/ differential --Chest portable [RAD] --Sodium Chloride 1,000 ml IV 150 mls/hr --Zofran Inj 4 mg IVP --Reevaluation Scribe Attestation: Documented by Paulie Damon, acting as a scribe for Cain Ingram MD. Provider Scribe Attestation: All medical record entries made by the Scribe were at my direction and personally dictated by me. I have reviewed the chart and agree that the record accurately reflects my personal performance of the history, physical exam, medi chata decision making, and the department course for this patient. I have also personally directed, reviewed, and agree with the discharge instructions and disposition. Disposition - Clinical Impression Clinical Impression: Near syncope - Patient ED Disposition Is Patient to be Admitted: Yes - Disposition Disposition Time: 10:52 Condition: FAIR - Pt Status Changed To: Hospital Disposition Of: Observation - POA Present On Arrival: None
[2018-07-02 10:06] LABS: BASO # 0.1 K/uL (0.0-0.2); BASO % 1.3 % (0.0-2.0); EOS # 1.5 K/uL (0.0-0.7); HEMOGLOBIN 14.1 g/dL (12.0-16.0); LYMPH # 1.9 K/uL (1.0-4.3); LYMPH % 22.2 % (20.0-40.0); MEAN CELL VOLUME 92.4 fl (81.0-99.0); MEAN CORPUSCULAR HEMOGLOBIN 31.1 pg (27.0-31.0); MEAN CORPUSCULAR HGB CONC 33.6 g/dL (33.0-37.0); MEAN PLATELET VOLUME 7.8 fl (7.2-11.7); MONO # 0.5 K/uL (0.0-0.8); MONO % 6.1 % (0.0-10.0); NEUT # 4.7 K/uL (1.8-7.0); NEUT % 53.4 % (50.0-75.0); RBC 4.55 Mil/uL (3.80-5.20); RED CELL DISTRIBUTION WIDTH 13.3 % (11.5-14.5); WHITE BLOOD COUNT 8.8 K/uL (4.8-10.8)
[2018-07-02 10:18] LABS: BLOOD UREA NITROGEN 17 mg/dl (7-17)
[2018-07-02 10:19] LABS: ALB/GLOB RATIO 1.2 (1.0-2.1); ALBUMIN 4.1 g/dL (3.5-5.0); ALT/SGPT 20 U/L (9-52); AST/SGOT 24 U/L (14-36); CALCIUM 9.9 mg/dL (8.4-10.2); GFR NON-AFRICAN AMERICAN > 60
--- NOTE | 2018-07-02 10:54 | RAD ---
Date of service: 07/02/2018 HISTORY: cough COMPARISON: Chest radiographs 12/26/2017. FINDINGS: LUNGS: No active pulmonary disease. PLEURA: No significant pleural effusion identified, no pneumothorax apparent. CARDIOVASCULAR: Normal. OSSEOUS STRUCTURES: No significant abnormalities. VISUALIZED UPPER ABDOMEN: Normal. OTHER FINDINGS: None. IMPRESSION: No interval acute cardiopulmonary disease appreciated.
--- NOTE | 2018-07-02 11:19 | CARD ---
APPROVED REPORT Date of service: 07/02/2018 EKG Measurement Heart [id number] 158P11 [id number] <Conclusion> Sinus bradycardia with sinus arrhythmia ST & T wave abnormality, consider lateral ischemia Abnormal ECG
--- NOTE | 2018-07-02 13:35 | CP.PCM.HP ---
History of Present Illness - History of Present Illness History of Present Illness: Patient seen and examined with Dr. Herron 68 yr old F with medical hx of HTN, IDDM, CAD, GERD, HLD, neuropathy, rheumatoid arthritis, and anxiety was brought to ED after near-syncopal episode occurred while patient was at the lab getting blood work done. [employer] PUR[employer]ICATION OPERATOR was called. As per patient, she started feeling weak after the blood was drawn. She was then given some juice, and reports an episode of nonbloody vomit with some nausea. She stated she has had episodes of similar symptoms occurring in the past. She also c/o epigastric pain. She denied any headache, LOC, tongue bitting, loss of urination or shortness of breath. PMD: Dr. Herron at [facility] Neurologist: Dr. Madera PMHx: HTN, IDDM, CAD, GERD, HLD, neuropathy, rheumatoid arthritis and anxiety PSurgHx: x 3, hysterectomy, b/l foot surgeries SocHx: denies smoking, Etoh, drugs; lives with son Meds: Carvedilol 12.5mg PO QD, Plavix 75mg PO QD, Atorvastatin 80mg PO HS, ASA 81mg PO QD, Lisinopril 20mg PO QD, Cymbalta 60mg PO QD, Metformin 1000 mg PO BID, Nateglinide 120mg PO QD, Insulin Detemir 30 units SC BID, Pantoprazole 40mg PO QD, Percocet 1 tab PO QPRN Allergies: NKDA ED Course: -VS: BP 99/63 mmHg, P62, T 97.6 F, R19, O2 sat 98% on room air -EKG: Sinus bradycardia at rate of 59 bpm CXR: no acute cardio/pulmonary disease -Labs: POC glucose- 193 Troponin negative x 2, CBC- MCH-31.1, Eos % 17 otherwise unremarkable, CMP-random glucose- 188 otherwise unremarkable -ED tx: IV fluids given Present on Admission - Present on Admission Any Indicators Present on Admission: No History of DVT/PE: No History of Uncontrolled Diabetes: Yes Urinary Catheter: No Decubitus Ulcer Present: No Past Patient History - Infectious Disease Hx of Infectious Diseases: None - Past Medical History & Family History Past Medical History?: Yes - Past Social History Smoking Status: Never Smoked - CARDIAC Hx Hypercholesterolemia: Yes Hx Hypertension: Yes - PULMONARY Hx Asthma: Yes - NEUROLOGICAL Hx Neurological Disorder: Yes Other/Comment: neuropathy - HEENT Hx HEENT Problems: Yes Hx Cataracts: Yes (1989 surgery done) - RENAL Hx Chronic Kidney Disease: No - ENDOCRINE/METABOLIC Hx Endocrine Disorders: Yes Hx Diabetes Mellitus Type 2: Yes - HEMATOLOGICAL/ONCOLOGICAL Hx Human Immunodeficiency Virus (HIV): No - INTEGUMENTARY Hx Dermatological Problems: No - MUSCULOSKELETAL/RHEUMATOLOGICAL Hx Arthritis: Yes Hx Fractures: Yes (LEFT RIB FX.) Hx Osteoporosis: Yes Hx Rheumatoid Arthritis: Yes - GASTROINTESTINAL Hx Gastrointestinal Disorders: No - GENITOURINARY/GYNECOLOGICAL Hx Genitourinary Disorders: No - PSYCHIATRIC Hx Anxiety: Yes - SURGICAL HISTORY Hx Surgeries: Yes Hx Section: Yes (X3) Hx Herniorrhaphy: Yes (VENTRAL) Hx Hysterectomy: Yes Other/Comment: Right toe surgery January - ANESTHESIA Hx Anesthesia: Yes Hx Anesthesia Reactions: No Hx Malignant Hyperthermia: No Meds Allergies/Adverse Reactions: Allergies Allergy/AdvReac Type Severity Reaction Status Date / Time No Known Allergies Allergy Verified 04/16/18 14:22 Physical Exam - Constitutional Appears: No Acute Distress - Head Exam Head Exam: ATRAUMATIC, NORMAL INSPECTION - Neck Exam Neck exam: Positive for: Full Rom - Respiratory Exam Respiratory Exam: Clear to Auscultation Bilateral - Cardiovascular Exam Cardiovascular Exam: REGULAR RHYTHM, +S1, +S2 - GI/Abdominal Exam GI & Abdominal Exam: Soft Additional comments: epigastric tenderness - Extremities Exam Additional comments: tenderness to dorsal aspect of right foot - Neurological Exam Neurological exam: Alert, Oriented x3 - Psychiatric Exam Psychiatric exam: Normal Affect, Normal Mood Results - Vital Signs Recent Vital Signs: Last Vital Signs Temp 97.6 F 07/02/18 09:36 Pulse 62 07/02/18 09:36 Resp 19 07/02/18 10:28 BP 99/63 L 07/02/18 09:36 Pulse Ox 98 07/02/18 09:36 - Labs Result Diagrams: 07/02/18 10:01 07/02/18 10:01 Labs: Laboratory Results - last 24 hr 07/02/18 07/02/18 07/02/18 09:31 10:01 10:01 WBC 8.8 RBC 4.55 Hgb 14.1 Hct 42.0 MCV 92.4 MCH 31.1 H MCHC 33.6 RDW 13.3 Plt Count 371 MPV 7.8 Neut % (Auto) 53.4 Lymph % (Auto) 22.2 [place] % (Auto) 6.1 Eos % (Auto) 17.0 H Baso % (Auto) 1.3 Neut # (Auto) 4.7 Lymph # (Auto) 1.9 [place] # (Auto) 0.5 Eos # (Auto) 1.5 H Baso # (Auto) 0.1 Sodium 138 Potassium 4.2 Chloride 99 Carbon Dioxide 28 Anion Gap 15 BUN 17 Creatinine 0.9 Est GFR ( Amer) > 60 Est GFR (Non-Af Amer) > 60 POC Glucose (mg/dL) 193 H Random Glucose 188 H Calcium 9.9 Total Bilirubin 0.4 AST 24 ALT 20 Alkaline Phosphatase 104 Troponin I < 0.0120 Total Protein 7.4 Albumin 4.1 Globulin 3.3 Albumin/Globulin Ratio 1.2 Assessment & Plan - Assessment and Plan (Free Text) Assessment: 68 yr old F with medical hx of HTN, IDDM, CAD, GERD, HLD, neuropathy, rheumatoid arthritis, and anxiety was brought to ED after near-syncopal episode occurred in lab. 1. Syncope (Acute) -Last bp 108/72 improved following IV fluids. -Orthostatic BP ordered. -Neuro consulted. -Admitted to telemetry. -Troponin negative x 2. 2. hx of CAD (Stable) -Continue Plavix 75mg PO QD, Atorvastatin 80mg PO QD, ASA 81mg PO QD 3. HTN (Chronic) -Hold lisinopril & carvedilol. 4. IDDM (Chronic,uncontrolled) HbA1c 9.5 (07/02/2018) -Continue Metformin 1000 mg PO BID, Nateglinide 120mg PO QD & Insulin Detemir 30 units SC BID -Hypoglycemia protocol -Moderate carbohydrate diet 5. Neuropathy (Stable, chronic) -Not on any meds 6. Anxiety (Chronic, stable) -Continue Duloxetine 30mg PO QD) 7. DVT prophylaxis -Lovenox 40mg SC QD
[2018-07-02] MEDS ORDERED: Dextrose 50% SYRINGE Inj (50 ml) IVP PRN (13:47)
[2018-07-02] MEDS ORDERED: Dextrose 50% SYRINGE Inj (50 ml) IV PRN (13:47)
[2018-07-02] MEDS ORDERED: Glucagon Recombinant 1 mg Inj IM PRN (13:47)
[2018-07-02] MEDS: Pantoprazole 40 mg EC Tab PO SCH (15:13)
[2018-07-02] MEDS: Sodium Chloride 0.9% 1,000 ML IV SCH ×2 (15:15→21:54)
[2018-07-02] MEDS: Insulin Detemir 100 Units/ml Inj SC SCH (17:07)
[2018-07-02] MEDS: Insulin Regular 100 units/ml SC SCH ×2 (17:09→21:48)
[2018-07-02] MEDS: Oxycodone/Acetaminophen 5/325 mg Tab PO PRN (21:56)
[2018-07-03] MEDS: Sodium Chloride 0.9% 1,000 ML IV SCH ×3 (05:50→21:15)
[2018-07-03] MEDS: Oxycodone/Acetaminophen 5/325 mg Tab PO PRN ×2 (06:12→20:04)
[2018-07-03] MEDS: Insulin Regular 100 units/ml SC SCH ×4 (06:58→22:37)
[2018-07-03] MEDS ORDERED: Pantoprazole 40 mg EC Tab PO SCH (09:00)
[2018-07-03] MEDS: Pantoprazole 40 mg EC Tab PO SCH (09:21)
[2018-07-03] MEDS: Enoxaparin 40 mg Syringe SC SCH (09:23)
[2018-07-03] MEDS: Insulin Detemir 100 Units/ml Inj SC SCH ×2 (09:24→16:29)
--- NOTE | 2018-07-03 16:07 | CP.PCM.CON ---
History of Present Illness - History of Present Illness History of Present Illness: Neurology Consultation Note: Mrs. Mccann is a 68-year-old woman, who was referred to me by Dr. Herron, with a past medical history of HTN, IDDM, CAD, GERD, HLD, neuropathy, rheumatoid arthritis, and anxiety was brought to ED after an episode of loss of consciousness with subsequent urinary/bowel incontinence as well as nausea/vo miting during phlebotomy. She has not had any subsequent episodes and has not had any other neurological complaints. She states that she has had similar episodes in the past. Review of Systems - Constitutional Constitutional: absent: As Per HPI, Anorexia, Chills, Daytime Sleepiness, Excessive Sweating, Fatigue, Fever, Frequent Falls, Headache, Increased Appetite, Lethargy, Malaise, Night Sweats, Snoring, Sleep Apnea, Weight Gain, Weight Loss, Weakness, Other - EENT Eyes: absent: As Per HPI, Blind Spots, Blurred Vision, Change in Vision, Decreased Night Vision, Diplopia, Discharge, Dry Eye, Exophthalmos, Floaters, Irritation, Itchy Eyes, Loss of Peripheral Vision, Pain, Photophobia, Requires Corrective Lenses, Sees Flashes, Spots in Vision, Tunnel Vision, Other Visual Disturbances, Loss of Vision, Other Ears: absent: As Per HPI, Decreased Hearing, Ear Discharge, Ear Pain, Tinnitus, Abnormal Hearing, Disequilibrium, Dizziness, Other Nose/Mouth/Throat: absent: As Per HPI, Epistaxis, Nasal Congestion, Nasal Discharge, Nasal Obstruction, Nasal Trauma, Nose Pain, Post Nasal Drip, Sinus Pain, Sinus Pressure, Bleeding Gums, Change in Voice, Dental Pain, Dry Mouth, Dysphagia, Halitosis, Hoarsness, Lip Swelling, Mouth Lesions, Mouth Pain, Odynophagia, Sore Throat, Throat Swelling, Tongue Swelling, Facial Pain, Neck Pain, Neck Mass, Other - Cardiovascular Cardiovascular: As Per HPI - Respiratory Respiratory: absent: As Per HPI, Cough, Dyspnea, Hemoptysis, Dyspnea on Exertion, Wheezing, Snoring, Stridor, Pain on Inspiration, Chest Congestion, Excessive Mucous Production, Change in Mucous Color, Pain with Coughing, Other - Gastrointestinal Gastrointestinal: absent: As Per HPI, Abdominal Pain, Belching, Bloating, Change in Bowel Habits, Change in Stool Character, Coffee Ground Emesis, Constipation, Cramping, Diarrhea, Dyspepsia, Dysphagia, Early Satiety, Excessive Flatus, Fecal Incontinence, Heartburn, Hematemesis, Hematochezia, Loose Stools, Melena, Nausea, Odynophagia, Temesmus, Vomiting, Other - Genitourinary Genitourinary: absent: As Per HPI, Change in Urinary Stream, Difficulty Urinating, Dysuria, Flank Pain, Hematuria, Pyuria, Nocturia, Urinary Incontinen ce, Urinary Frequency, Urinary Hesitance, Urinary Urgency, Voiding Freq/Small Amts, Freq UTI, Hx Renal/Bladder Calculi, Hx /Renal Surgery, Bladder Distension, Other - Musculoskeletal Musculoskeletal: absent: As Per HPI, Abnormal Gait, Arthralgias, Atrophy, Back Pain, Deformity, Joint Swelling, Limited Range of Motion, Loss of Height, Muscle Cramps, Muscle Weakness, Myalgias, Neck Pain, Numbness, Radiating Pain into Limb, Stiffness, Tingling, Other - Integumentary Integumentary: absent: As Per HPI, Acne, Alopecia, Bleeding Lesions, Change in Hair, Change in Nails, Change in Pigmentation, Changing Lesions, Dry Skin, Erythema, Furuncle, Hirsutism, Lesions, New Lesions, Non-Healing Lesions, Photosensitivity, Pruritus, Rash, Skin Pain, Skin Ulcer, Sores, Striae, Swelling, Unusual Bruising, Wounds, Jaundice, Other - Neurological Neurological: As Per HPI - Psychiatric Psychiatric: absent: As Per HPI, Abnormal Sleep Pattern, Anhedonia, Anxiety, Auditory Hallucinations, Behavioral Changes, Change in Appetite, Change in Libido, Confusion, Depression, Difficulty Concentrating, Hallucinations, Homicidal Ideation, Hopelessness, Irritability, Memory Loss, Mood Swings, Panic Attacks, Paranoia, Suicidal Ideation, Visual Hallucinations, Tactile Hallucinations, Other - Endocrine Endocrine: absent: As Per HPI, Change in Body Appearance, Change in Libido, Cold Intolorance, Deepening of Voice, Excessive Sweating, Fatigue, Flushing, Heat Intolorance, Increase in Ring/Shoe/Hat Size, Palpitations, Polydipsia, Polyphagia, Polyuria, Other Past Patient History - Infectious Disease Hx of Infectious Diseases: None - Past Medical History & Family History Past Medical History?: Yes - Past Social History Smoking Status: Never Smoked - CARDIAC Hx Hypercholesterolemia: Yes Hx Hypertension: Yes - PULMONARY Hx Asthma: Yes - NEUROLOGICAL Hx Neurological Disorder: Yes Other/Comment: neuropathy - HEENT Hx HEENT Problems: Yes Hx Cataracts: Yes (1989 surgery done) - RENAL Hx Chronic Kidney Disease: No - ENDOCRINE/METABOLIC Hx Endocrine Disorders: Yes Hx Diabetes Mellitus Type 2: Yes - HEMATOLOGICAL/ONCOLOGICAL Hx Human Immunodeficiency Virus (HIV): No - INTEGUMENTARY Hx Dermatological Problems: No - MUSCULOSKELETAL/RHEUMATOLOGICAL Hx Arthritis: Yes Hx Fractures: Yes (LEFT RIB FX.) Hx Osteoporosis: Yes Hx Rheumatoid Arthritis: Yes - GASTROINTESTINAL Hx Gastrointestinal Disorders: No - GENITOURINARY/GYNECOLOGICAL Hx Genitourinary Disorders: No - PSYCHIATRIC Hx Anxiety: Yes - SURGICAL HISTORY Hx Surgeries: Yes Hx Section: Yes (X3) Hx Herniorrhaphy: Yes (VENTRAL) Hx Hysterectomy: Yes Other/Comment: Right toe surgery January - ANESTHESIA Hx Anesthesia: Yes Hx Anesthesia Reactions: No Hx Malignant Hyperthermia: No Meds Allergies/Adverse Reactions: Allergies Allergy/AdvReac Type Severity Reaction Status Date / Time No Known Allergies Allergy Verified 04/16/18 14:22 - Medications Medications: Current Medications Aspirin (Ecotrin) 81 mg PO DAILY [facility] Last Admin: 07/03/18 09:22 Dose: 81 mg Atorvastatin Calcium (Lipitor) 80 mg PO HS [facility] Last Admin: 07/02/18 21:49 Dose: 80 mg Carvedilol (Coreg) 6.25 mg PO Q12 [facility] Last Admin: 07/03/18 09:21 Dose: 6.25 mg Clopidogrel Bisulfate (Plavix) 75 mg PO DAILY [facility] Last Admin: 07/03/18 09:21 Dose: 75 mg Dextrose (Dextrose 50% Inj) 0 ml IV STAT PRN; Protocol PRN Reason: Hypoglycemia Protocol Dextrose (Dextrose 50% Inj) 50 ml IVP ONCE PRN PRN Reason: Hypoglycemia Dextrose (Glutose 15) 0 gm PO ONCE PRN; Protocol PRN Reason: Hypoglycemia Protocol Duloxetine HCl (Cymbalta) 60 mg PO DAILY [facility] Last Admin: 07/03/18 09:22 Dose: 60 mg Enoxaparin Sodium (Lovenox) 40 mg SC DAILY [facility]; Protocol Last Admin: 07/03/18 09:23 Dose: 40 mg Glucagon (Glucagen Diagnostic Kit) 0 mg IM STAT PRN; Protocol PRN Reason: Hypoglycemia Protocol Sodium Chloride (Sodium Chloride 0.9%) 1,000 mls @ 125 mls/hr IV .Q8H [facility] Last Admin: 07/03/18 12:49 Dose: 125 mls/hr Insulin Detemir (Levemir) 30 units SC BID [facility] Last Admin: 07/03/18 09:24 Dose: 30 units Insulin Human Regular (Humulin R) 0 units SC ACHS [facility]; Protocol Last Admin: 07/03/18 12:46 Dose: 4 units Lisinopril (Zestril) 10 mg PO DAILY [facility] Last Admin: 07/03/18 09:22 Dose: 10 mg Metformin HCl (Glucophage) 1,000 mg PO BID [facility] Last Admin: 07/03/18 09:21 Dose: 1,000 mg Nateglinide (Starlix) 120 mg PO ACTID [facility] Last Admin: 07/03/18 12:45 Dose: 120 mg Oxycodone/Acetaminophen (Percocet 5/325 Mg Tab) 1 tab PO Q8 PRN PRN Reason: Pain, severe (8-10) Stop: 07/05/18 13:26 Last Admin: 07/03/18 06:12 Dose: 1 tab Pantoprazole Sodium (Protonix Ec Tab) 40 mg PO DAILY [facility] Last Admin: 07/03/18 09:21 Dose: 40 mg Physical Exam - Constitutional Appears: Well - Head Exam Head Exam: ATRAUMATIC, NORMAL INSPECTION, NORMOCEPHALIC - Eye Exam Eye Exam: EOMI, Normal appearance, PERRL - ENT Exam ENT Exam: Mucous Membranes Moist, Normal Exam - Neck Exam Neck exam: Positive for: Normal Inspection - Respiratory Exam Respiratory Exam: Clear to Auscultation Bilateral, NORMAL BREATHING PATTERN - Cardiovascular Exam Cardiovascular Exam: REGULAR RHYTHM - GI/Abdominal Exam GI & Abdominal Exam: Normal Bowel Sounds, Soft. absent: Tenderness - Rectal Exam Rectal Exam: Deferred - Back Exam Back exam: NORMAL INSPECTION - Neurological Exam Neurological exam: Alert, CN II-XII Intact, Normal Gait, Oriented x3, Reflexes Normal - Psychiatric Exam Psychiatric exam: Normal Affect, Normal Mood - Skin Skin Exam: Dry, Intact, Normal Color, Warm Results - Vital Signs Recent Vital Signs: Last Vital Signs Temp 98.7 F 07/03/18 13:00 Pulse 78 07/03/18 13:00 Resp 20 07/03/18 13:00 BP 138/84 07/03/18 13:00 Pulse Ox 99 07/03/18 13:00 - Labs Result Diagrams: 07/02/18 10:01 07/02/18 10:01 Labs: Laboratory Results - last 24 hr 07/02/18 07/02/18 07/02/18 15:47 16:42 21:17 POC Glucose (mg/dL) 217 H 166 H Troponin I < 0.0120 07/02/18 07/03/18 07/03/18 22:05 05:54 12:02 POC Glucose (mg/dL) 131 H 271 H Troponin I < 0.0120 Assessment & Plan (1) Loss of consciousness Assessment and Plan: May have been due to vaso-vagal syncope, or neuro-cardiogenic in origin. However, the history of associated urinary/bowel incontinence and nausea/vomiting she had after is concerning for either VBI, or may have been an atonic seizure. I recommend obtaining CT/CTA of the head/neck and a routine EEG for further evaluation. IF these are normal, the patient can follow up with her neurologist, Dr. Madera, as an outpatient. Thank you. Status: Acute
--- NOTE | 2018-07-03 16:59 | CP.PCM.PN ---
Subjective - Date & Time of Evaluation Date of Evaluation: 07/03/18 Time of Evaluation: 09:48 - Subjective Subjective: Case discussed with Dr. Herron. Patient was seen and examined this AM. She stated she slept well. She endorsed going to the restroom without feeling any weakness, lightheadedness or shortness of breath, but complained of some nausea early this morning. Despite the nausea, she tolerated diabetic diet without complaints. Objective - Vital Signs/Intake and Output Vital Signs (last 24 hours): Temp Pulse Resp BP Pulse Ox 98.1 F 61 20 146/74 99 07/03/18 16:24 07/03/18 16:24 07/03/18 16:24 07/03/18 16:24 07/03/18 16:24 - Medications Medications: Current Medications Aspirin (Ecotrin) 81 mg PO DAILY [facility] Last Admin: 07/03/18 09:22 Dose: 81 mg Atorvastatin Calcium (Lipitor) 80 mg PO HS [facility] Last Admin: 07/02/18 21:49 Dose: 80 mg Carvedilol (Coreg) 6.25 mg PO Q12 [facility] Last Admin: 07/03/18 09:21 Dose: 6.25 mg Clopidogrel Bisulfate (Plavix) 75 mg PO DAILY [facility] Last Admin: 07/03/18 09:21 Dose: 75 mg Dextrose (Dextrose 50% Inj) 0 ml IV STAT PRN; Protocol PRN Reason: Hypoglycemia Protocol Dextrose (Dextrose 50% Inj) 50 ml IVP ONCE PRN PRN Reason: Hypoglycemia Dextrose (Glutose 15) 0 gm PO ONCE PRN; Protocol PRN Reason: Hypoglycemia Protocol Duloxetine HCl (Cymbalta) 60 mg PO DAILY [facility] Last Admin: 07/03/18 09:22 Dose: 60 mg Enoxaparin Sodium (Lovenox) 40 mg SC DAILY [facility]; Protocol Last Admin: 07/03/18 09:23 Dose: 40 mg Glucagon (Glucagen Diagnostic Kit) 0 mg IM STAT PRN; Protocol PRN Reason: Hypoglycemia Protocol Sodium Chloride (Sodium Chloride 0.9%) 1,000 mls @ 125 mls/hr IV .Q8H [facility] Last Admin: 07/03/18 12:49 Dose: 125 mls/hr Insulin Detemir (Levemir) 30 units SC BID [facility] Last Admin: 07/03/18 16:29 Dose: 30 units Insulin Human Regular (Humulin R) 0 units SC ACHS [facility]; Protocol Last Admin: 07/03/18 16:29 Dose: Not Given Lisinopril (Zestril) 10 mg PO DAILY [facility] Last Admin: 07/03/18 09:22 Dose: 10 mg Metformin HCl (Glucophage) 1,000 mg PO BID [facility] Last Admin: 07/03/18 16:14 Dose: 1,000 mg Nateglinide (Starlix) 120 mg PO ACTID [facility] Last Admin: 07/03/18 16:29 Dose: 120 mg Oxycodone/Acetaminophen (Percocet 5/325 Mg Tab) 1 tab PO Q8 PRN PRN Reason: Pain, severe (8-10) Stop: 07/05/18 13:26 Last Admin: 07/03/18 06:12 Dose: 1 tab Pantoprazole Sodium (Protonix Ec Tab) 40 mg PO DAILY [facility] Last Admin: 07/03/18 09:21 Dose: 40 mg - Labs Labs: 07/02/18 10:01 07/02/18 10:01 - Constitutional Appears: Non-toxic, No Acute Distress - Head Exam Head Exam: ATRAUMATIC - Neck Exam Neck Exam: Full ROM - Respiratory Exam Respiratory Exam: Clear to Ausculation Bilateral - Cardiovascular Exam Cardiovascular Exam: REGULAR RHYTHM, +S1, +S2 - GI/Abdominal Exam GI & Abdominal Exam: Soft, Normal Bowel Sounds. absent: Firm, Guarding, Rigid - Neurological Exam Neurological Exam: Alert, Awake, Oriented x3 - Psychiatric Exam Psychiatric exam: Normal Affect, Normal Mood - Skin Skin Exam: Dry, Intact Assessment and Plan - Assessment and Plan (Free Text) Assessment: 68 yr old F with medical hx of HTN, IDDM, CAD, GERD, HLD, neuropathy, rheumatoid arthritis, and anxiety was brought to ED after near-syncopal episode occurred in lab. 1. Syncope (Acute) -AM bp 108/72 improved following IV fluids. -Orthostatic BP: 143/74 laying down, 150/76 sitting, 136/68 standing. -Neuro recommendations, as per Dr. Goddard appreciated. -FU EEG, CT head w/o contrast & CTA head & neck. 2. hx of CAD (Stable) -Continue Plavix 75mg PO QD, Atorvastatin 80mg PO QD & ASA 81mg PO QD 3. HTN (Chronic) -Restarted lisinopril 10mg PO QD & carvedilol 6.25mg PO BID. 4. IDDM (Chronic,uncontrolled) HbA1c 9.5 (07/02/2018) -Continue Metformin 1000 mg PO BID, Nateglinide 120mg PO QD & Insulin Detemir 30 units SC BID -Hypoglycemia protocol -Moderate carbohydrate diet 5. Neuropathy (Stable, chronic) -Not on any meds 6. Anxiety (Chronic, stable) -Continue Duloxetine 30mg PO QD 7. DVT prophylaxis -Lovenox 40mg SC QD
[2018-07-03] MEDS ORDERED: Iodixanol 320 MG/ML 100 ML BOTTLE IV ONE (18:38)
[2018-07-03] MEDS ORDERED: Sodium Chloride 0.9% 50 ML IV ONE (18:39)
[2018-07-04 05:50] LABS: BLOOD UREA NITROGEN 13 mg/dl (7-17); CALCIUM 9.1 mg/dL (8.4-10.2); GFR NON-AFRICAN AMERICAN > 60
[2018-07-04] MEDS: Insulin Regular 100 units/ml SC SCH ×4 (06:48→23:35)
[2018-07-04] MEDS: Sodium Chloride 0.9% 1,000 ML IV SCH ×3 (06:56→21:20)
[2018-07-04] MEDS: Oxycodone/Acetaminophen 5/325 mg Tab PO PRN ×2 (07:34→21:26)
--- NOTE | 2018-07-04 08:41 | CT ---
Date of service: 07/03/2018 PROCEDURE: CT HEAD WITHOUT CONTRAST. HISTORY: syncope COMPARISON: 03/06/2017 TECHNIQUE: Axial computed tomography images were obtained through the head/brain without intravenous contrast. Radiation dose: Total exam DLP = 710.94 mGy-cm. This CT exam was performed using one or more of the following dose reduction techniques: Automated exposure control, adjustment of the mA and/or kV according to patient size, and/or use of iterative reconstruction technique. FINDINGS: HEMORRHAGE: None BRAIN: No mass effect or edema. No evidence of acute infarct. Small old bilateral basal ganglia lacunar infarcts are noted. Minimal chronic periventricular white matter ischemic changes noted adjacent to the frontal horns of the lateral ventricles. VENTRICLES: Unremarkable. No hydrocephalus. CALVARIUM: Unremarkable. PARANASAL SINUSES: Unremarkable as visualized. No significant inflammatory changes. MASTOID AIR CELLS: Unremarkable as visualized. No inflammatory changes. OTHER FINDINGS: None. IMPRESSION: No intracranial mass, hemorrhage or evidence of acute infarct. Mild chronic white matter ischemic change. Small old bilateral basal ganglia lacunar infarcts. The preliminary findings for this examination were reported by [facility] at 7:49 p.m. on 07/03/2018. There is concurrence of this report with the preliminary findings.
[2018-07-04] MEDS: Pantoprazole 40 mg EC Tab PO SCH (09:00)
[2018-07-04] MEDS: Insulin Detemir 100 Units/ml Inj SC SCH ×2 (09:01→17:36)
[2018-07-04] MEDS: Enoxaparin 40 mg Syringe SC SCH (09:03)
--- NOTE | 2018-07-04 13:55 | CP.PCM.DIS ---
Provider - Provider Date of Admission: 07/02/18 10:51 Attending physician: Aki Herron MD Hospital Course - Lab Results Lab Results: Most Recent Lab Values WBC 8.8 K/uL (4.8-10.8) 07/02/18 10:01 RBC 4.55 Mil/uL (3.80-5.20) 07/02/18 10:01 Hgb 14.1 g/dL (12.0-16.0) 07/02/18 10:01 Hct 42.0 % (34.0-47.0) 07/02/18 10:01 MCV 92.4 fl (81.0-99.0) 07/02/18 10:01 MCH 31.1 pg (27.0-31.0) H 07/02/18 10:01 MCHC 33.6 g/dL (33.0-37.0) 07/02/18 10:01 RDW 13.3 % (11.5-14.5) 07/02/18 10:01 Plt Count 371 K/uL (130-400) 07/02/18 10:01 MPV 7.8 fl (7.2-11.7) 07/02/18 10:01 Neut % (Auto) 53.4 % (50.0-75.0) 07/02/18 10:01 Lymph % (Auto) 22.2 % (20.0-40.0) 07/02/18 10:01 [place] % (Auto) 6.1 % (0.0-10.0) 07/02/18 10:01 Eos % (Auto) 17.0 % (0.0-4.0) H 07/02/18 10:01 Baso % (Auto) 1.3 % (0.0-2.0) 07/02/18 10:01 Neut # (Auto) 4.7 K/uL (1.8-7.0) 07/02/18 10:01 Lymph # (Auto) 1.9 K/uL (1.0-4.3) 07/02/18 10:01 [place] # (Auto) 0.5 K/uL (0.0-0.8) 07/02/18 10:01 Eos # (Auto) 1.5 K/uL (0.0-0.7) H 07/02/18 10:01 Baso # (Auto) 0.1 K/uL (0.0-0.2) 07/02/18 10:01 Sodium 139 mmol/l (132-148) 07/04/18 04:50 Potassium 5.5 MMOL/L (3.6-5.0) H 07/04/18 04:50 Chloride 105 mmol/L (98-107) 07/04/18 04:50 Carbon Dioxide 28 mmol/L (22-30) 07/04/18 04:50 Anion Gap 12 (10-20) 07/04/18 04:50 BUN 13 mg/dl (7-17) 07/04/18 04:50 Creatinine 0.8 mg/dl (0.7-1.2) 07/04/18 04:50 Est GFR ( Amer) > 60 07/04/18 04:50 Est GFR (Non-Af Amer) > 60 07/04/18 04:50 POC Glucose (mg/dL) 287 mg/dL (65-110) H 07/04/18 11:26 Random Glucose 192 mg/dL (65-105) H 07/04/18 04:50 Calcium 9.1 mg/dL (8.4-10.2) 07/04/18 04:50 Total Bilirubin 0.4 mg/dl (0.2-1.3) 07/02/18 10:01 AST 24 U/L (14-36) 07/02/18 10:01 ALT 20 U/L (9-52) 07/02/18 10:01 Alkaline Phosphatase 104 U/L (38-126) 07/02/18 10:01 Troponin I < 0.0120 ng/mL (0.00-0.120) 07/02/18 22:05 Total Protein 7.4 G/DL (6.3-8.2) 07/02/18 10:01 Albumin 4.1 g/dL (3.5-5.0) 07/02/18 10:01 Globulin 3.3 gm/dL (2.2-3.9) 07/02/18 10:01 Albumin/Globulin Ratio 1.2 (1.0-2.1) 07/02/18 10:01 Discharge Exam - Head Exam Head Exam: ATRAUMATIC Discharge Plan - Follow Up Plan Condition: FAIR Disposition: HOME/ ROUTINE
--- NOTE | 2018-07-04 13:58 | CP.PCM.PN ---
Subjective - Date & Time of Evaluation Date of Evaluation: 07/04/18 Time of Evaluation: 10:56 - Subjective Subjective: Patient seen and examined this AM. Patient slept well overnight with no complaints of weakness, lightheadedness, dizziness, nausea or vomitting. Objective - Vital Signs/Intake and Output Vital Signs (last 24 hours): Temp Pulse Resp BP Pulse Ox 98.1 F 69 18 130/81 97 07/04/18 12:15 07/04/18 12:15 07/04/18 12:15 07/04/18 12:15 07/04/18 12:15 - Medications Medications: Current Medications Aspirin (Ecotrin) 81 mg PO DAILY [facility] Last Admin: 07/04/18 08:59 Dose: 81 mg Atorvastatin Calcium (Lipitor) 80 mg PO HS [facility] Last Admin: 07/03/18 22:37 Dose: 80 mg Carvedilol (Coreg) 6.25 mg PO Q12 [facility] Last Admin: 07/04/18 08:58 Dose: 6.25 mg Clopidogrel Bisulfate (Plavix) 75 mg PO DAILY [facility] Last Admin: 07/04/18 08:59 Dose: 75 mg Dextrose (Dextrose 50% Inj) 0 ml IV STAT PRN; Protocol PRN Reason: Hypoglycemia Protocol Dextrose (Dextrose 50% Inj) 50 ml IVP ONCE PRN PRN Reason: Hypoglycemia Dextrose (Glutose 15) 0 gm PO ONCE PRN; Protocol PRN Reason: Hypoglycemia Protocol Duloxetine HCl (Cymbalta) 60 mg PO DAILY [facility] Last Admin: 07/04/18 09:00 Dose: 60 mg Enoxaparin Sodium (Lovenox) 40 mg SC DAILY [facility]; Protocol Last Admin: 07/04/18 09:03 Dose: 40 mg Glucagon (Glucagen Diagnostic Kit) 0 mg IM STAT PRN; Protocol PRN Reason: Hypoglycemia Protocol Sodium Chloride (Sodium Chloride 0.9%) 1,000 mls @ 125 mls/hr IV .Q8H [facility] Last Admin: 07/04/18 06:56 Dose: Not Given Insulin Detemir (Levemir) 30 units SC BID [facility] Last Admin: 07/04/18 09:01 Dose: 30 units Insulin Human Regular (Humulin R) 0 units SC ACHS [facility]; Protocol Last Admin: 07/04/18 13:10 Dose: 4 units Lisinopril (Zestril) 10 mg PO DAILY [facility] Last Admin: 07/04/18 08:59 Dose: 10 mg Metformin HCl (Glucophage) 1,000 mg PO BID [facility] Last Admin: 07/04/18 08:59 Dose: 1,000 mg Nateglinide (Starlix) 120 mg PO ACTID [facility] Last Admin: 07/04/18 13:10 Dose: 120 mg Oxycodone/Acetaminophen (Percocet 5/325 Mg Tab) 1 tab PO Q8 PRN PRN Reason: Pain, severe (8-10) Stop: 07/05/18 13:26 Last Admin: 07/04/18 07:34 Dose: 1 tab Pantoprazole Sodium (Protonix Ec Tab) 40 mg PO DAILY [facility] Last Admin: 07/04/18 09:00 Dose: 40 mg - Labs Labs: 07/02/18 10:01 07/04/18 04:50 - Constitutional Appears: Non-toxic, No Acute Distress - Head Exam Head Exam: ATRAUMATIC - Respiratory Exam Respiratory Exam: Clear to Ausculation Bilateral - Cardiovascular Exam Cardiovascular Exam: REGULAR RHYTHM, +S1, +S2 - GI/Abdominal Exam GI & Abdominal Exam: Soft, Normal Bowel Sounds. absent: Firm, Rigid, Tenderness - Extremities Exam Extremities Exam: absent: Calf Tenderness - Neurological Exam Neurological Exam: Alert, Oriented x3 - Psychiatric Exam Psychiatric exam: Normal Affect, Normal Mood - Skin Skin Exam: Dry, Intact Assessment and Plan - Assessment and Plan (Free Text) Assessment: 68 yr old F with medical hx of HTN, IDDM, CAD, GERD, HLD, neuropathy, rheumatoid arthritis, and anxiety was brought to ED after near-syncopal episode that occurred in lab following blood work. 1. Syncope (Acute) -Orthostatic BP 130/81 supine p-66bpm, 126/79 sitting p-69 bpm, 132/78 p-84bpm standing. -Neurologist, Dr. López's recommendations have been appreciated. -CT head: no acute pathology. -FU official CTA read. 2. hx of CAD (Stable) -Continue Plavix 75mg PO QD, Atorvastatin 80mg PO QD, ASA 81mg PO QD 3. HTN (Chronic) -Continue lisinopril 10mg PO QD & carvedilol 6.25mg PO BID. 4. IDDM (Chronic,uncontrolled) HbA1c 9.5 (07/02/2018) -Continue Metformin 1000 mg PO BID, Nateglinide 120mg PO QD & Insulin Detemir 30 units SC BID -Hypoglycemia protocol -Moderate carbohydrate diet 5. Neuropathy (Stable, chronic) -Not on any meds 6. Anxiety (Chronic, stable) -Continue Duloxetine 30mg PO Q) 7. DVT prophylaxis -Lovenox 40mg SC QD
[2018-07-04] MEDS ORDERED: Sod Polystyrene Sulf 15 gm/60 ml Susp PO ONE (20:08)
[2018-07-05 06:27] LABS: BLOOD UREA NITROGEN 10 mg/dl (7-17); CALCIUM 9.4 mg/dL (8.4-10.2); GFR NON-AFRICAN AMERICAN > 60
[2018-07-05] MEDS: Sodium Chloride 0.9% 1,000 ML IV SCH (06:52)
[2018-07-05] MEDS: Insulin Regular 100 units/ml SC SCH ×3 (06:53→16:54)
[2018-07-05] MEDS: Pantoprazole 40 mg EC Tab PO SCH (08:32)
[2018-07-05] MEDS: Enoxaparin 40 mg Syringe SC SCH (08:33)
[2018-07-05] MEDS: Insulin Detemir 100 Units/ml Inj SC SCH (08:34)
--- NOTE | 2018-07-05 10:08 | CP.PCM.DIS ---
Provider - Provider Date of Admission: 07/02/18 10:51 Attending physician: Aki Herron MD Time Spent in preparation of Discharge (in minutes): 45 Hospital Course - Lab Results Lab Results: Most Recent Lab Values WBC 8.8 K/uL (4.8-10.8) 07/02/18 10:01 RBC 4.55 Mil/uL (3.80-5.20) 07/02/18 10:01 Hgb 14.1 g/dL (12.0-16.0) 07/02/18 10:01 Hct 42.0 % (34.0-47.0) 07/02/18 10:01 MCV 92.4 fl (81.0-99.0) 07/02/18 10:01 MCH 31.1 pg (27.0-31.0) H 07/02/18 10:01 MCHC 33.6 g/dL (33.0-37.0) 07/02/18 10:01 RDW 13.3 % (11.5-14.5) 07/02/18 10:01 Plt Count 371 K/uL (130-400) 07/02/18 10:01 MPV 7.8 fl (7.2-11.7) 07/02/18 10:01 Neut % (Auto) 53.4 % (50.0-75.0) 07/02/18 10:01 Lymph % (Auto) 22.2 % (20.0-40.0) 07/02/18 10:01 [place] % (Auto) 6.1 % (0.0-10.0) 07/02/18 10:01 Eos % (Auto) 17.0 % (0.0-4.0) H 07/02/18 10:01 Baso % (Auto) 1.3 % (0.0-2.0) 07/02/18 10:01 Neut # (Auto) 4.7 K/uL (1.8-7.0) 07/02/18 10:01 Lymph # (Auto) 1.9 K/uL (1.0-4.3) 07/02/18 10:01 [place] # (Auto) 0.5 K/uL (0.0-0.8) 07/02/18 10:01 Eos # (Auto) 1.5 K/uL (0.0-0.7) H 07/02/18 10:01 Baso # (Auto) 0.1 K/uL (0.0-0.2) 07/02/18 10:01 Sodium 140 mmol/l (132-148) 07/05/18 04:20 Potassium 4.3 MMOL/L (3.6-5.0) 07/05/18 04:20 Chloride 102 mmol/L (98-107) 07/05/18 04:20 Carbon Dioxide 32 mmol/L (22-30) H 07/05/18 04:20 Anion Gap 10 (10-20) 07/05/18 04:20 BUN 10 mg/dl (7-17) 07/05/18 04:20 Creatinine 0.7 mg/dl (0.7-1.2) 07/05/18 04:20 Est GFR ( Amer) > 60 07/05/18 04:20 Est GFR (Non-Af Amer) > 60 07/05/18 04:20 POC Glucose (mg/dL) 127 mg/dL (65-110) H 07/05/18 06:48 Random Glucose 94 mg/dL (65-105) 07/05/18 04:20 Calcium 9.4 mg/dL (8.4-10.2) 07/05/18 04:20 Total Bilirubin 0.4 mg/dl (0.2-1.3) 07/02/18 10:01 AST 24 U/L (14-36) 07/02/18 10:01 ALT 20 U/L (9-52) 07/02/18 10:01 Alkaline Phosphatase 104 U/L (38-126) 07/02/18 10:01 Troponin I < 0.0120 ng/mL (0.00-0.120) 07/02/18 22:05 Total Protein 7.4 G/DL (6.3-8.2) 07/02/18 10:01 Albumin 4.1 g/dL (3.5-5.0) 07/02/18 10:01 Globulin 3.3 gm/dL (2.2-3.9) 07/02/18 10:01 Albumin/Globulin Ratio 1.2 (1.0-2.1) 07/02/18 10:01 - Hospital Course Hospital Course: 68 yr old F with medical hx of HTN, IDDM, CAD, GERD, HLD, neuropathy, rheumatoid arthritis, and anxiety was brought to ED after near-syncopal episode occurred while patient was at the lab getting blood work done. FLOOR NURSE was called at that time. As per patient, she started feeling weak after the blood was drawn. Patient endorses a long history of similar episodes that have occurred in various locations including prior to colonoscpy, while standing on the bus, and even walking on the street. Patient was admitted to telemetry. Head CT was negative for intracranial mass, hemorrhage or evidence of acute infarct. EEG was performed as well, and found to be normal. Head CTA was performed and negative for acute pathology as per Dr. López. Official report pending. 1. Syncope (Acute, asymptomatic at this time) -Patient will have tilt table performed as outpatient. -FU with Dr. López. -FU in [facility] with Dr. Rory Wade 07/12/2018 at 2:20pm. 2. hx of CAD (Stable) -Continue Plavix 75mg PO QD, Atorvastatin 80mg PO QD & ASA 81mg PO QD 3. HTN (Chronic) -Continue lisinopril 10mg PO QD & carvedilol 6.25mg PO BID. 4. IDDM (Chronic,uncontrolled) -Continue Metformin 1000 mg PO BID, Nateglinide 120mg PO QD & Insulin Detemir 30 units SC BID 5. Neuropathy (Chronic, stable,) -Not on any meds 6. Anxiety (Chronic, stable) -Continue Duloxetine 30mg PO QD Discharge Exam - Head Exam Head Exam: ATRAUMATIC - Neck Exam Neck exam: Full Rom - Respiratory Exam Respiratory Exam: Clear to PA & Lateral. absent: Wheezes - Cardiovascular Exam Cardiovascular Exam: REGULAR RHYTHM, +S1, +S2 - GI/Abdominal Exam GI & Abdominal Exam: Normal Bowel Sounds, Soft. absent: Firm, Guarding - Neurological Exam Neurological exam: Alert, Oriented x3 - Psychiatric Exam Psychiatric exam: Normal Affect, Normal Mood Discharge Plan - Discharge Medications Prescriptions: Carvedilol [Coreg] 6.25 mg PO Q12 30 Days #60 tab Lisinopril [Zestril] 10 mg PO DAILY 30 Days #30 tab - Follow Up Plan Condition: FAIR Disposition: HOME/ ROUTINE Additional Instructions: Please follow up in [facility] on 07/12/18 @2:20 pm. Please arrive by 2:00 pm. Script given for Table tilt test to get done. [facility] or jose manuel. Referrals: [facility] [Outside] Carmine López MD [Medical Doctor] - Clinical Quality Measures - CQM - Stroke Antithrombotic Prescribed: Yes Anticoagulation Prescribed for Atrial Flutter, Atrial Fibrillation and History of:: Not Applicable Statin prescribed: Yes - Date & Time of Discharge Summary Date of Discharge Summary: 07/05/18 Time of Discharge Summary: 12:00
--- NOTE | 2018-07-05 11:11 | PCM.EEG ---
Electroencephalogram Report - Electroencephalogram Report Procedure Date: 07/04/18 Condition of Recording: Awake, Drowsy Medication: Oxycodone, Plavix, Metformin, Atorvastatin Interpretation: Technical Information: This was a 21 -channel EEG, 1-channel EKG routine EEG performed using an [employer] machine. Electrodes were applied using the 10/20 international placement system. During active states, the EEG contained symmetric 10-20 Hz,20-30 uV activity seen bi-frontally. . During resting wakefulness there was a symmetric posterior dominant rhythm at 8.5-9.5 Hz, 30-50 uV, which was reactive to eye opening and closing. . Drowsiness was associated with fragmentation of the posterior dominant rhythm and with slow roving eye movements. Hyperventilation was not performed. Photic stimulation was performed and there were no changes on the record. Focal abnormality; none Impression: Impression: This is a normal awake and drowsy electroencephalogram.
[2018-07-05 12:51] VITALS: RESP 20
[2018-07-05] MEDS ORDERED: Oxycodone/Acetaminophen 5/325 mg Tab PO ONE (14:02)
[2018-07-05 16:07] VITALS: BP 139/77; PULSE 74; TEMP 98.2; O2SAT 98
--- NOTE | 2018-07-05 18:22 | CT ---
Date of service: 07/03/2018 PROCEDURE: CT Angiography of the Brain and Neck. HISTORY: syncope COMPARISON: None available. TECHNIQUE: CT angiography of the intracranial and neck arteries was performed. Coronal and sagittal maximum intensity projection reformatted images were generated. Contrast Dose: Visipaque 320, 85 cc Radiation dose:Total exam DLP = 476.30 mGy-cm. This CT exam was performed using one or more of the following dose reduction techniques: Automated exposure control, adjustment of the mA and/or kV according to patient size, and/or use of iterative reconstruction technique. FINDINGS: INTERNAL CEREBRAL ARTERIES: Unremarkable. The skull base, petrous, cavernous and supraclinoid segments are bilaterally widely patent. ANTERIOR CEREBRAL ARTERIES: Unremarkable. A1 and A2 segments are widely patent. Smaller distal branches unremarkable, as visualized. MIDDLE CEREBRAL ARTERIES: Unremarkable. M1 and M2 segments are widely patent. Perisylvian branches grossly symmetric. POSTERIOR CIRCULATION: Basilar Artery: Unremarkable. Distal Vertebral Arteries: Left dominant vertebrobasilar circulation identified. Posterior Cerebral Arteries: Unremarkable. Posterior Inferior Cerebellar Arteries: Unremarkable. NECK CTA: Common Carotid arteries: The bilateral common carotid appear patent from their origins to their bifurcations with no significant stenosis appreciated. No evidence to suggest common carotid artery dissection. Bilateral carotid bulbar atherosclerosis without significant stenosis resulting. Internal Carotid arteries: No significant stenosis is appreciated throughout the cervical internal carotid artery segments bilaterally and there is no evidence of dissection either. External Carotid arteries: Appear unremarkable bilaterally. Vertebral arteries: The bilateral vertebral arteries appear normal in caliber from their origins to their distal cervical segments. No significant stenosis or definite pattern of dissection. ANEURYSM/ VASCULAR MALFORMATIONS: None. OTHER FINDINGS: Proximal right subclavian artery atherosclerosis without significant stenosis. IMPRESSION: No occlusion or significant stenosis in the CT angiography of the brain and neck as discussed above although occasional atherosclerotic changes seen at the carotid bulb are segments bilaterally incidentally at the proximal right subclavian artery without significant stenosis resulting.
== END 2018-07-05 16:55 | disposition home or self-care (01) ==
LOC: H.ER 09:22 → H.ERHOLD 10:51 → INTOOBSV 12:54 → OBSVTOIN 12:54 → H.TEL 14:03
PROVIDERS: ADMIT Family Medicine; ATTEND Family Medicine
DX: R55 Syncope and collapse (principal); I10 Essential (primary) hypertension; I25.10 Atherosclerotic heart disease of native coronary artery without angina pectoris; E11.9 Type 2 diabetes mellitus without complications; F41.9 Anxiety disorder, unspecified; E78.5 Hyperlipidemia, unspecified; E78.00 Pure hypercholesterolemia, unspecified; K21.9 Gastro-esophageal reflux disease without esophagitis; M06.9 Rheumatoid arthritis, unspecified; J45.909 Unspecified asthma, uncomplicated; G62.9 Polyneuropathy, unspecified; M81.0 Age-related osteoporosis without current pathological fracture; Z79.02 Long term (current) use of antithrombotics/antiplatelets; Z79.4 Long term (current) use of insulin; Z79.82 Long term (current) use of aspirin
CPT/HCPCS: 36415; 70450; 70496; 70498; 71045; 80048; 80053; 82948; 84484; 85025; 93005; 96374; 97116; 97161; 97530; 99283; G0378; G8978; G8979; J1650; J2405; J7030; Q9967

== ENCOUNTER 2018-10-16 15:52 | Observation (INO) | payer MEDICARE, OTHER ==
[2018-10-16] MEDS ORDERED: Sodium Chloride 0.9% 1,000 ML IV STA ×2 (16:12→16:43)
--- NOTE | 2018-10-16 16:31 | ED PDOC ---
HPI:Nausea, Vomiting, Diarrhea Time Seen by Provider: 10/16/18 16:11 Chief Complaint (Nursing): Syncope Chief Complaint (Provider): Nausea, vomiting, diarrhea History Per: Patient, Family (son) History/Exam Limitations: no limitations Onset/Duration Of Symptoms: Days (x 1) Current Symptoms Are (Timing): Still Present Associated Symptoms: Nausea, Vomiting, Diarrhea Additional Complaint(s): 68 year old female with a history of hyperlipidemia, DM type I and gastritis presents to the ED via EMS with nausea, vomiting, diarrhea and lightheadedness beginning 1 hour prior to arrival. Patient's son provide history and reports he left her in the morning without complaints. When he returned she was hyperventilating on the toilet and complaining of watery diarrhea, nausea and vomiting. EMS reports patient was hypotensive and bradycardic on their arrival. Patient was given fluids. Denies blood in stool or vomit, chest pain, abdominal pain, and other complaints. PMD: Dr Herron Abnormal Vaginal Bleeding: No Past Medical History Reviewed: Historical Data, Nursing Documentation, Vital Signs Vital Signs: Last Vital Signs Temp 97.3 F L 10/16/18 15:57 Pulse 57 L 10/16/18 15:57 Resp 19 10/16/18 15:57 BP 81/38 L 10/16/18 15:57 Pulse Ox 100 10/16/18 15:57 - Medical History PMH: Anxiety, Arthritis, Asthma, Diabetes, Fractures (LEFT RIB FX.), HTN, Hypercholesterolemia, Osteoporosis, Rheumatoid Arthritis Denies: HIV, Chronic Kidney Disease - Surgical History Surgical History: (x 3) - Family History Family History: States: Unknown Family Hx - Immunization History Hx Tetanus Toxoid Vaccination: No Hx Influenza Vaccination: No Hx Pneumococcal Vaccination: No - Home Medications Home Medications: Ambulatory Orders Medication Instructions Recorded Nateglinide 120 mg PO ACTID 02/19/15 Insulin Detemir [Levemir] 30 unit SC BID 03/29/16 Aspirin [Ecotrin] 81 mg PO DAILY 03/06/17 Atorvastatin Calcium [Lipitor] 80 mg PO HS 03/06/17 Clopidogrel [Plavix] 75 mg PO DAILY 03/06/17 Oxycodone HCl/Acetaminophen 1 tab PO Q8 PRN 03/06/17 [Percocet 5-325 mg Tablet] DULoxetine [Cymbalta] 60 mg PO DAILY 07/02/18 MetFORMIN [glucoPHAGE] 1,000 mg PO BID 07/02/18 Omeprazole 20 mg PO DAILY 07/02/18 valACYclovir [Valtrex] 500 mg PO BID 07/02/18 Carvedilol [Coreg] 6.25 mg PO Q12 30 Days #60 tab 07/05/18 Lisinopril [Zestril] 10 mg PO DAILY 30 Days #30 tab 07/05/18 - Allergies Allergies/Adverse Reactions: Allergies Allergy/AdvReac Type Severity Reaction Status Date / Time No Known Allergies Allergy Verified 10/16/18 16:03 Review of Systems ROS Statement: Except As Marked, All Systems Reviewed And Found Negative Constitutional: Negative for: Fever, Chills Gastrointestinal: Positive for: Nausea, Vomiting, Diarrhea. Negative for: Abdominal Pain Neurological: Positive for: Dizziness Physical Exam - Reviewed Nursing Documentation Reviewed: Yes Vital Signs Reviewed: Yes - Physical Exam Appears: Positive for: No Acute Distress Head Exam: Positive for: ATRAUMATIC, NORMAL INSPECTION, NORMOCEPHALIC Skin: Positive for: Normal Color, Warm, Dry Eye Exam: Positive for: EOMI, Normal appearance, PERRL Neck: Positive for: Normal, Painless ROM, Supple Cardiovascular/Chest: Positive for: Regular Rate, Rhythm. Negative for: Murmur Respiratory: Positive for: Normal Breath Sounds. Negative for: Respiratory Distress Gastrointestinal/Abdominal: Positive for: Normal Exam, Soft. Negative for: Tenderness Back: Positive for: Normal Inspection. Negative for: L CVA Tenderness, R CVA Tenderness Extremity: Positive for: Normal ROM (x 4). Negative for: Deformity, Swelling Neurologic/Psych: Positive for: Alert, materials scientist II-XII (grossly intact), Oriented (x 3). Negative for: Motor/Sensory Deficits, Cerebellar Tests, Aphasia - Laboratory Results Result Diagrams: 10/16/18 16:45 10/16/18 16:45 Lab Results: 21 bun - ECG ECG: Positive for: Interpreted By Me, Viewed By Me ECG Rhythm: Positive for: Nonspecific Changes Interpretation Of Abn EKG: same as old O2 Sat by Pulse Oximetry: 100 (RA) Pulse Ox Interpretation: Normal - Radiology X-Ray: Read By Radiologist X-Ray Interpretation: No Acute Disease - CT Scan/US ct Other Rad Studies (CT/US): Read By Radiologist Other Rad Interpretation: no acute - Progress ED Course And Treament: 2100: Stable. AAOx3. Pain free. BP maintained. Will need obs to make sure pt. does not have hypotensive and dizziness episodes. Spoke with Dr. Trotter who will admit. Medical Decision Making Medical Decision Makin Impression: NVD Initial Plan: --VBG --CT Abd & Pelvis --CT Head --EKG --BNP --CMP --mag --Phos --Troponin --CBC --PTT --PT --CXR --Glucose POC --Bentyl 10 mg PO --NS IV 2,000 mls --NS IV 1,000 mls --Zofran 4 mg IVP --Blood cx --Urine cx --UA Scribe Attestation: Documented by Sandy Briseno acting as a scribe for Wilver Villanueva MD Provider Scribe Attestation: All medical record entries made by the Scribe were at my direction and personally dictated by me. I have reviewed the chart and agree that the record accurately reflects my personal performance of the history, physical exam, medical decision making, and the department course for this patient. I have also personally directed, reviewed, and agree with the discharge instructions and disposition. Disposition - Clinical Impression Clinical Impression: Dizziness, Hypotension - Patient ED Disposition Is Patient to be Admitted: Yes Counseled Patient/Family Regarding: Studies Performed, Diagnosis - Disposition Disposition Time: 21:11 Condition: FAIR - Pt Status Changed To: Hospital Disposition Of: Observation - POA Present On Arrival: None
[2018-10-16 16:53] LABS: BASO # 0.1 K/uL (0.0-0.2); EOS # 0.7 K/uL (0.0-0.7); EOS % 6.5 % (0.0-4.0); HEMOGLOBIN 12.7 g/dL (12.0-16.0); LYMPH # 2.1 K/uL (1.0-4.3); LYMPH % 19.5 % (20.0-40.0); MEAN CELL VOLUME 95.7 fl (81.0-99.0); MEAN CORPUSCULAR HEMOGLOBIN 31.9 pg (27.0-31.0); MEAN CORPUSCULAR HGB CONC 33.3 g/dL (33.0-37.0); MEAN PLATELET VOLUME 7.3 fl (7.2-11.7); MONO # 0.7 K/uL (0.0-0.8); MONO % 6.6 % (0.0-10.0); NEUT # 7.2 K/uL (1.8-7.0); NEUT % 66.4 % (50.0-75.0); NRBC % 0.1 % (0.0-0.0); RBC 3.99 Mil/uL (3.80-5.20); RED CELL DISTRIBUTION WIDTH 14.5 % (11.5-14.5); WHITE BLOOD COUNT 10.8 K/uL (4.8-10.8)
[2018-10-16 16:59] LABS: PROTHROMBIN TIME 11.1 Seconds (9.8-13.1)
[2018-10-16 17:00] LABS: PARTIAL THROMBOPLASTIN TIME 27.5 Seconds (25.6-37.1)
[2018-10-16 17:09] LABS: ALB/GLOB RATIO 1.2 (1.0-2.1); ALBUMIN 3.8 g/dL (3.5-5.0); ALT/SGPT 14 U/L (9-52); AST/SGOT 19 U/L (14-36); BLOOD UREA NITROGEN 21 mg/dl (7-17); CALCIUM 9.2 mg/dL (8.4-10.2); GFR NON-AFRICAN AMERICAN > 60
[2018-10-16 17:12] LABS: VENOUS BLOOD GAS BASE EXCESS 1.6 mmol/L (0.0-2.0); VENOUS BLOOD GAS PCO2 60 mmHg (40-60); VENOUS BLOOD GAS PO2 16 mm/Hg (30-55)
[2018-10-16 17:21] LABS: B-TYPE NATRIURETIC PEPTIDE 185 pg/ml (0-900)
[2018-10-16] MEDS ORDERED: Sodium Chloride 0.9% 50 ML IV ONE (17:28)
[2018-10-16] MEDS ORDERED: Iohexol 300 100 ML IJ ONE (17:28)
--- NOTE | 2018-10-16 17:41 | RAD ---
Date of service: 10/16/2018 HISTORY: Sepsis Patient COMPARISON: Chest radiograph dated 07/02/2018. FINDINGS: LUNGS: No active pulmonary disease. PLEURA: No significant pleural effusion identified, no pneumothorax apparent. CARDIOVASCULAR: Aortic atherosclerotic calcifications. Cardiomediastinal silhouette stably enlarged. OSSEOUS STRUCTURES: Unchanged. VISUALIZED UPPER ABDOMEN: Normal. OTHER FINDINGS: None. IMPRESSION: No active disease.
--- NOTE | 2018-10-16 18:10 | CT ---
Date of service: 10/16/2018 PROCEDURE: CT HEAD WITHOUT CONTRAST. HISTORY: headache COMPARISON: Noncontrast head CT performed 07/03/18 TECHNIQUE: Axial computed tomography images were obtained through the head/brain without intravenous contrast. Radiation dose: Total exam DLP = 712.14 mGy-cm. This CT exam was performed using one or more of the following dose reduction techniques: Automated exposure control, adjustment of the mA and/or kV according to patient size, and/or use of iterative reconstruction technique. FINDINGS: HEMORRHAGE: No intracranial hemorrhage. BRAIN: Diffuse atrophy with prominence of the ventricles and sulci noted. No mass effect or edema. Intracranial atherosclerosis. Small bilateral chronic appearing basal corner infarcts. Mild scattered white matter hypodensities, which are nonspecific, but often seen with chronic microvascular ischemic disease. Please note that MRI with diffusion imaging is more sensitive in the detection of acute ischemic event. VENTRICLES: No hydrocephalus. CALVARIUM: Unremarkable. PARANASAL SINUSES: Unremarkable as visualized. No significant inflammatory changes. MASTOID AIR CELLS: Unremarkable as visualized. No inflammatory changes. OTHER FINDINGS: None. IMPRESSION: Generalized atrophy. Nonspecific white matter changes. Chronic appearing bilateral basal ganglia lacunar infarcts.
--- NOTE | 2018-10-16 18:13 | CT ---
Date of service: 10/16/2018 PROCEDURE: CT Abdomen and Pelvis with contrast HISTORY: pain COMPARISON: CT scan of the abdomen pelvis dated 08/04/2014 TECHNIQUE: Contrast dose: 95 mL Omnipaque 300 Radiation dose: Total exam DLP = 814.87 mGy-cm. This CT exam was performed using one or more of the following dose reduction techniques: Automated exposure control, adjustment of the mA and/or kV according to patient size, and/or use of iterative reconstruction technique. FINDINGS: LOWER THORAX: Unremarkable. LIVER: Unremarkable. No gross lesion or ductal dilatation. GALLBLADDER AND BILE DUCTS: Unremarkable. PANCREAS: Unremarkable. No gross lesion or ductal dilatation. SPLEEN: Unremarkable. ADRENALS: Unremarkable. No mass. KIDNEYS AND URETERS: Unremarkable. No hydronephrosis. No solid mass. VASCULATURE: Unremarkable. No aortic aneurysm. No aortic atherosclerotic calcification or mural plaque present. BOWEL: Extensive colonic diverticulosis with marked thickening of the sigmoid without significant stranding. No obstruction. No gross mural thickening. APPENDIX: Normal appendix. PERITONEUM: Unremarkable. No free fluid. No free air. LYMPH NODES: Unremarkable. No enlarged lymph nodes. BLADDER: Unremarkable. REPRODUCTIVE: Unremarkable. BONES: Spinal degenerative changes. No acute fracture. OTHER FINDINGS: None. IMPRESSION: No acute abdominal pelvic pathology. Stable findings as above.
[2018-10-16 21:19] LABS: SQUAMOUS EPITHIAL < 1 /hpf (0-5); URINE BILIRUBIN NEGATIVE (NEGATIVE); URINE BLOOD NEGATIVE (NEGATIVE); URINE CLARITY CLEAR (Clear); URINE COLOR STRAW (YELLOW); URINE GLUCOSE (UA) NEG (NEGATIVE); URINE LEUKOCYTE ESTERASE NEG Leu/uL (Negative); URINE PROTEIN NEGATIVE (NEGATIVE); URINE UROBILINOGEN 0.2-1.0 mg/dL (0.2-1.0)
[2018-10-16] MEDS ORDERED: Glucagon Recombinant 1 mg Inj IM PRN (23:01)
[2018-10-16] MEDS ORDERED: Dextrose 50% SYRINGE Inj (50 ml) IV PRN (23:01)
--- NOTE | 2018-10-16 23:03 | CP.PCM.HP ---
History of Present Illness - History of Present Illness History of Present Illness: History was taken from patient herself. 68 y/o F with a PMHx of DM2, HTN, GERD and HLD was brought to ED due nausea, vomiting, diarrhea and lightheadedness that began around 2pm. Pt reports she had 4-5 episodes of large explosive watery diarrhea, progressively feeling bilateral leg weakness and dizzy. On last diarrhea episode, pt was unable to get up from toilet and had to be helped by son and EMS. Pt explains she became unresponsive for a short period of time due to generalized weakness and low back pain, never lost consciousness and remembers everything. Pt reports chills, nausea and 2 small episodes of vomiting that were described as small quantity of bubblish clear liquid, non-bloody and non-bilious. Pt did not look at stools to see if there was blood or mucus. Currently, pt reports mild nausea but NO abdominal pain. --EMS reports patient was hypotensive and bradycardic on their arrival. Patient was given IV fluids. Pt denies chest pain, SOB, current abdominal pain, rash or peripheral edema. --As per pt, this the 12th time that she had the same symptoms in 2 years. Pt has been evaluated by artillery meteorological man at [facility] [place], [place] due to syncope episode, tilt table test was performed a few days ago with NO PMD: Dr. Herron at [facility] Neurologist: Dr. Madera -PMHx: HTN, IDDM, CAD, GERD, HLD, neuropathy, rheumatoid arthritis and anxiety -PSurgHx: x 3, hysterectomy, b/l foot surgeries -SocHx: denies smoking, Etoh, drugs; lives with son -Allergies: NKDA At ED: --VS were remarkable only for BP 81/38-very low. --CBC showed NO leukocytosis. CMP and U/A were unremarkable. --Head CT unremarkable. See full reprot --CT Abdomen: unremarkable except for diverticulosis. --CXR: no active disease. --Bentyl x1, Zofran x1, IV NSS 3L boluses. Present on Admission - Present on Admission Any Indicators Present on Admission: No Review of Systems - Constitutional Constitutional: Chills. absent: Fever - EENT Nose/Mouth/Throat: absent: Nasal Congestion, Facial Pain, Neck Pain, Neck Mass - Cardiovascular Cardiovascular: absent: Chest Pain, Claudication, Diaphoresis, Dyspnea - Respiratory Respiratory: absent: Cough, Dyspnea, Hemoptysis, Wheezing - Gastrointestinal Gastrointestinal: Diarrhea, Nausea, Vomiting. absent: Abdominal Pain - Genitourinary Genitourinary: absent: Difficulty Urinating, Dysuria, Hematuria, Urinary Frequency - Musculoskeletal Musculoskeletal: Muscle Weakness Past Patient History - Infectious Disease Hx of Infectious Diseases: None - Past Medical History & Family History Past Medical History?: Yes - Past Social History Smoking Status: Never Smoked - CARDIAC Hx Hypercholesterolemia: Yes Hx Hypertension: Yes - PULMONARY Hx Asthma: Yes - NEUROLOGICAL Hx Neurological Disorder: Yes Other/Comment: neuropathy - HEENT Hx HEENT Problems: Yes Hx Cataracts: Yes (1989 surgery done) - RENAL Hx Chronic Kidney Disease: No - ENDOCRINE/METABOLIC Hx Endocrine Disorders: Yes Hx Diabetes Mellitus Type 2: Yes - HEMATOLOGICAL/ONCOLOGICAL Hx Human Immunodeficiency Virus (HIV): No - INTEGUMENTARY Hx Dermatological Problems: No - MUSCULOSKELETAL/RHEUMATOLOGICAL Hx Arthritis: Yes Hx Fractures: Yes (LEFT RIB FX.) Hx Osteoporosis: Yes Hx Rheumatoid Arthritis: Yes - GASTROINTESTINAL Hx Gastrointestinal Disorders: No - GENITOURINARY/GYNECOLOGICAL Hx Genitourinary Disorders: No - PSYCHIATRIC Hx Anxiety: Yes - SURGICAL HISTORY Hx Surgeries: Yes Hx Section: Yes (X3) Hx Herniorrhaphy: Yes (VENTRAL) Hx Hysterectomy: Yes Other/Comment: Right toe surgery January - ANESTHESIA Hx Anesthesia: Yes Hx Anesthesia Reactions: No Hx Malignant Hyperthermia: No Meds Allergies/Adverse Reactions: Allergies Allergy/AdvReac Type Severity Reaction Status Date / Time No Known Allergies Allergy Verified 10/16/18 16:03 Physical Exam - Constitutional Appears: No Acute Distress - Head Exam Head Exam: ATRAUMATIC, NORMAL INSPECTION - Eye Exam Eye Exam: EOMI, Normal appearance - ENT Exam ENT Exam: Mucous Membranes Moist - Neck Exam Neck exam: Positive for: Full Rom, Meningismus - Respiratory Exam Respiratory Exam: NORMAL BREATHING PATTERN. absent: Rhonchi, Wheezes, Respiratory Distress - Cardiovascular Exam Cardiovascular Exam: REGULAR RHYTHM, +S1, +S2 - GI/Abdominal Exam GI & Abdominal Exam: Hyperactive Bowel Sounds, Soft, Tenderness (very mild on lower quadrants. ). absent: Distended, Guarding, Rebound, Rigid - Extremities Exam Extremities exam: Positive for: full ROM. Negative for: calf tenderness, pedal edema, tenderness - Back Exam Back exam: absent: CVA tenderness (L) Results - Vital Signs Recent Vital Signs: Last Vital Signs Temp 98.4 F 10/16/18 22:32 Pulse 73 10/16/18 22:32 Resp 18 10/16/18 22:32 BP 104/67 10/16/18 22:32 Pulse Ox 97 10/16/18 22:32 - Labs Result Diagrams: 10/16/18 16:45 10/16/18 16:45 Labs: Laboratory Results - last 24 hr 10/16/18 10/16/18 10/16/18 16:18 16:45 16:45 WBC 10.8 RBC 3.99 Hgb 12.7 Hct 38.2 MCV 95.7 D MCH 31.9 H MCHC 33.3 RDW 14.5 Plt Count 417 H MPV 7.3 Neut % (Auto) 66.4 Lymph % (Auto) 19.5 L [place] % (Auto) 6.6 Eos % (Auto) 6.5 H Baso % (Auto) 1.0 Neut # (Auto) 7.2 H Lymph # (Auto) 2.1 [place] # (Auto) 0.7 Eos # (Auto) 0.7 Baso # (Auto) 0.1 PT INR APTT pO2 VBG pH VBG pCO2 VBG HCO3 VBG Total CO2 VBG O2 Sat (Calc) VBG Base Excess VBG Potassium Glucose Lactate FiO2 Sodium 141 Potassium 4.4 Chloride 106 Carbon Dioxide 29 Anion Gap 10 BUN 21 H Creatinine 0.9 Est GFR ( Amer) > 60 Est GFR (Non-Af Amer) > 60 POC Glucose (mg/dL) 126 H Random Glucose 109 H Calcium 9.2 Phosphorus 4.1 Magnesium 1.7 Total Bilirubin 0.2 AST 19 ALT 14 Alkaline Phosphatase 98 Troponin I < 0.0120 NT-Pro-B Natriuret Pep 185 Total Protein 7.1 Albumin 3.8 Globulin 3.3 Albumin/Globulin Ratio 1.2 Venous Blood Potassium Urine Color Urine Clarity Urine pH Ur Specific [place] Urine Protein Urine Glucose (UA) Urine Ketones Urine Blood Urine Nitrate Urine Bilirubin Urine Urobilinogen Ur Leukocyte Esterase Urine RBC (Auto) Urine Microscopic WBC Ur Squamous Epith Cells 10/16/18 10/16/18 10/16/18 16:45 17:08 21:00 WBC RBC Hgb Hct MCV MCH MCHC RDW Plt Count MPV Neut % (Auto) Lymph % (Auto) [place] % (Auto) Eos % (Auto) Baso % (Auto) Neut # (Auto) Lymph # (Auto) [place] # (Auto) Eos # (Auto) Baso # (Auto) PT 11.1 INR 1.0 APTT 27.5 pO2 16 L VBG pH 7.30 L VBG pCO2 60 VBG HCO3 24.0 VBG Total CO2 31.3 H VBG O2 Sat (Calc) 19.0 L VBG Base Excess 1.6 VBG Potassium 4.6 Glucose 104 Lactate 2.0 FiO2 21.0 Sodium 139.0 Potassium Chloride 105.0 Carbon Dioxide Anion Gap BUN Creatinine Est GFR ( Amer) Est GFR (Non-Af Amer) POC Glucose (mg/dL) Random Glucose Calcium Phosphorus Magnesium Total Bilirubin AST ALT Alkaline Phosphatase Troponin I NT-Pro-B Natriuret Pep Total Protein Albumin Globulin Albumin/Globulin Ratio Venous Blood Potassium 4.6 Urine Color Straw Urine Clarity Clear Urine pH 6.0 Ur Specific [place] 1.029 Urine Protein Negative Urine Glucose (UA) Neg Urine Ketones Negative Urine Blood Negative Urine Nitrate Negative Urine Bilirubin Negative Urine Urobilinogen 0.2-1.0 Ur Leukocyte Esterase Neg Urine RBC (Auto) 1 Urine Microscopic WBC < 1 Ur Squamous Epith Cells < 1 Assessment & Plan - Assessment and Plan (Free Text) Assessment: 68 y/o F witha PMHx of HTN, DM, CAD, GERD, and anxiety was was admitted for evaluation and management of pre-syncope, hypotension and dehydration. PLAN: >Pre-syncope/lightheadedness/Hypotension --Afebrile, due to severe diarrhea. --Possibly orthostatic hypotension, neuropathy (diabetic), vasovagal etiology. --S/P 3 L NSS --Current BP 109/61, improving --Admit to Telemetry --Maintenance fluids: IV NSS at 115mL/hr. --Hold HTN medications >Diarrhea, episodic --Acute --S/P 3 L NSS --F/U AM labs. >Essential HTN --Chronic --Hold medications >IDDM --Chronic,uncontrolled --HbA1c 9.5 (07/02/2018) --Hold Metformin 1000 mg due to GI symptoms --Home meds resumed: Nateglinide 120mg PO QD and Insulin Detemir 30 units SC BID --Insulin sliding scale and Hypoglycemia protocol >Hx x of CAD (Stable) -Home meds resumed: Plavix 75mg PO QD, Atorvastatin 80mg PO QD, ASA 81mg PO QD >Chronic pain/Neuropathy --Home meds resumed: Percocet >Anxiety (Chronic, stable) --Not on meds >DVT prophylaxis --Lovenox 40mg SC QD - Date & Time Date: 10/17/18 Time: 00:00
[2018-10-16] MEDS: Oxycodone/Acetaminophen 5/325 mg Tab PO PRN (23:51)
[2018-10-16] MEDS ORDERED: Oxycodone/Acetaminophen 5/325 mg Tab ONE (23:51)
[2018-10-17] MEDS: Sodium Chloride 0.9% 1,000 ML IV SCH ×3 (00:01→20:34)
[2018-10-17 07:50] LABS: HEMOGLOBIN 11.2 g/dL (12.0-16.0); MEAN CELL VOLUME 98.4 fl (81.0-99.0); MEAN CORPUSCULAR HEMOGLOBIN 31.8 pg (27.0-31.0); MEAN CORPUSCULAR HGB CONC 32.3 g/dL (33.0-37.0); RBC 3.51 Mil/uL (3.80-5.20)
[2018-10-17 07:55] LABS: BLOOD UREA NITROGEN 14 mg/dl (7-17); CALCIUM 8.8 mg/dL (8.4-10.2); GFR NON-AFRICAN AMERICAN > 60
[2018-10-17] MEDS ORDERED: Enoxaparin 40 mg Syringe SC SCH (09:00)
[2018-10-17] MEDS: Insulin Lispro (humaLOG) 100 Units/ml Inj SC SCH ×3 (10:37→18:41)
[2018-10-17] MEDS: Insulin Detemir 100 Units/ml Inj SC SCH ×2 (10:39→18:39)
[2018-10-17] MEDS: Pantoprazole 40 mg EC Tab PO SCH (10:45)
--- NOTE | 2018-10-17 13:59 | CARD ---
APPROVED REPORT Date of service: 10/16/2018 EKG Measurement Heart [id number] <Conclusion> Sinus bradycardia with sinus arrhythmia ST & T wave abnormality, consider lateral ischemia Abnormal ECG
[2018-10-17] MEDS ORDERED: Gadodiamide 287 MG/ML VIAL (15ML) IV ONE (16:29)
--- NOTE | 2018-10-17 17:31 | CP.PCM.PN ---
Subjective - Date & Time of Evaluation Date of Evaluation: 10/17/18 Time of Evaluation: 08:00 - Subjective Subjective: Pt seen and examined this morning with Dr. Herron at the bedside. No new episodes of n/v/diarrhea, dizziness or syncope. Pt reported she also had slurred speech and left sided weakness that resolved shortly after. Brain MRI ordered. Objective - Vital Signs/Intake and Output Vital Signs (last 24 hours): Temp Pulse Resp BP Pulse Ox 98.3 F 68 18 130/76 97 10/17/18 16:33 10/17/18 16:33 10/17/18 16:33 10/17/18 16:33 10/17/18 16:33 - Medications Medications: Current Medications Aspirin (Ecotrin) 81 mg PO DAILY [facility] Last Admin: 10/17/18 10:45 Dose: 81 mg Atorvastatin Calcium (Lipitor) 80 mg PO HS [facility] Clopidogrel Bisulfate (Plavix) 75 mg PO DAILY [facility] Last Admin: 10/17/18 10:45 Dose: 75 mg Dextrose (Dextrose 50% Inj) 0 ml IV STAT PRN; Protocol PRN Reason: Hypoglycemia Protocol Dextrose (Glutose 15) 0 gm PO ONCE PRN; Protocol PRN Reason: Hypoglycemia Protocol Enoxaparin Sodium (Lovenox) 40 mg SC DAILY [facility]; Protocol Glucagon (Glucagen Diagnostic Kit) 0 mg IM STAT PRN; Protocol PRN Reason: Hypoglycemia Protocol Sodium Chloride (Sodium Chloride 0.9%) 1,000 mls @ 115 mls/hr IV .[id number] [facility] Last Admin: 10/17/18 11:04 Dose: 115 mls/hr Insulin Detemir (Levemir) 30 units SC BID [facility] Last Admin: 10/17/18 10:39 Dose: Not Given Insulin Human Lispro (Humalog) 0 units SC ACCU-CHECK [facility]; Protocol Last Admin: 10/17/18 12:53 Dose: 2 units Naproxen (Naproxen) 500 mg PO Q12 [facility] Nateglinide (Starlix) 120 mg PO ACTID [facility] Last Admin: 10/17/18 12:55 Dose: 120 mg Ondansetron HCl (Zofran Inj) 4 mg IVP Q6 PRN PRN Reason: Nausea/Vomiting Oxycodone/Acetaminophen (Percocet 5/325 Mg Tab) 1 tab PO Q8 PRN PRN Reason: Pain, severe (8-10) Stop: 10/19/18 22:50 Last Admin: 10/16/18 23:51 Dose: 1 tab Pantoprazole Sodium (Protonix Ec Tab) 40 mg PO DAILY [facility] Last Admin: 10/17/18 10:45 Dose: 40 mg - Labs Labs: 10/17/18 07:00 10/17/18 07:00 PT 11.1 Seconds (9.8-13.1) 10/16/18 16:45 INR 1.0 10/16/18 16:45 APTT 27.5 Seconds (25.6-37.1) 10/16/18 16:45 - Constitutional Appears: No Acute Distress - Head Exam Head Exam: NORMAL INSPECTION - Eye Exam Eye Exam: Normal appearance, PERRL. absent: Nystagmus - ENT Exam ENT Exam: Mucous Membranes Moist - Respiratory Exam Respiratory Exam: Clear to Ausculation Bilateral. absent: Rales, Wheezes - Cardiovascular Exam Cardiovascular Exam: REGULAR RHYTHM, +S1, +S2 - GI/Abdominal Exam GI & Abdominal Exam: Soft, Normal Bowel Sounds. absent: Tenderness - Extremities Exam Extremities Exam: Normal Inspection - Neurological Exam Neurological Exam: Alert, Awake, Motor Sensory Deficit, Oriented x3 - Psychiatric Exam Psychiatric exam: Normal Affect - Skin Skin Exam: Normal Color Assessment and Plan - Assessment and Plan (Free Text) Assessment: 68 y/o F witha PMHx of HTN, DM, CAD, GERD, and anxiety was was admitted for evaluation and management of pre-syncope,hypotension, and left sided weakness. Brain MRI pending. PLAN: >Pre-syncope/lightheadedness/Hypotension --Etiology unknown suspecting vasavogal (+prodrome) vs Orthostatic vs CVA vs neuropathy --Need to rule out CVA, Brain MRI ordered, head ct negative --S/P 3 L NSS bolus --Current BP 130/76, will check orthostatics with and without BP meds. --Telemetry monitoring --Maintenance fluids: IV NSS at 115mL/hr. --PT ordered to assess gait >Diarrhea, episodic --Acute, pt reports transient episodes of vomiting and explosive diarrhea -- Will send workup for Carcinoid syndrome, IBD, Stool Cx, Stool Leukocytes, Lactoferrin etc. Can be followed up outpatient --Electrolytes normal >Left Toe pain -Pt had recent surgery -No signs of acute joint infection -May be mild gout flare -NSAIDS for now, and monitor. >Essential HTN --Chronic >IDDM --Chronic,uncontrolled --HbA1c 9.5 (07/02/2018) --Hold Metformin 1000 mg due to GI symptoms --Home meds resumed: Nateglinide 120mg PO QD and Insulin Detemir 30 units SC BID --Insulin sliding scale and Hypoglycemia protocol >Hx x of CAD (Stable) -Home meds resumed: Plavix 75mg PO QD, Atorvastatin 80mg PO QD, ASA 81mg PO QD >Chronic pain/Neuropathy --Home meds resumed: Percocet >Anxiety (Chronic, stable) --Not on meds >DVT prophylaxis --Lovenox 40mg SC QD D/W Dr. Herron
--- NOTE | 2018-10-17 18:20 | MRI ---
Date of service: 10/17/2018 PROCEDURE: MRI BRAIN WITH AND WITHOUT CONTRAST HISTORY: unilateral weakness COMPARISON: Comparison is made with 05/07/2017 TECHNIQUE: Multiplanar, multisequence MR images of the brain were obtained with and without intravenous contrast enhancement. FINDINGS: HEMORRHAGE: None DWI: No evidence of an acute or early subacute infarction. BRAIN PARENCHYMA: No mass,mass effect or edema. Mild atrophy and mild white matter changes suggestive of chronic microvascular ischemic disease are again noted. Chronic right basal ganglia lacunar type infarcts are again noted. ENHANCEMENT: No abnormal intracranial enhancement. VENTRICLES: Unremarkable. No hydrocephalus. CRANIUM: Unremarkable. ORBITS: Grossly unremarkable. PARANASAL SINUSES/MASTOIDS: Clear VASCULAR SYSTEM: Skull base flow voids intact. OTHER FINDINGS: None . IMPRESSION: No evidence of acute intracranial hemorrhage or infarct. Mild volume loss and mild periventricular chronic microvascular ischemic disease again noted. No evidence of enhancing mass lesion mass effect or midline shift.
[2018-10-17] MEDS: Oxycodone/Acetaminophen 5/325 mg Tab PO PRN (20:27)
[2018-10-17] MEDS: Naproxen 500 MG TAB PO SCH (21:46)
[2018-10-17] MEDS ORDERED: Patient's Own Med (Atorvastatin Calcium [Lipitor] 80 mg) PO SCH (22:00)
[2018-10-18] MEDS: Insulin Lispro (humaLOG) 100 Units/ml Inj SC SCH ×3 (00:04→11:30)
[2018-10-18] MEDS: Sodium Chloride 0.9% 1,000 ML IV SCH (01:00)
[2018-10-18 01:07] VITALS: RESP 18
--- NOTE | 2018-10-18 07:37 | CP.PCM.DIS ---
Provider - Provider Date of Admission: 10/16/18 21:12 Attending physician: Aki Herron MD Time Spent in preparation of Discharge (in minutes): 35 Diagnosis - Discharge Diagnosis (1) Dizziness Status: Resolved (2) Hypotension Status: Resolved (3) Near syncope Status: Resolved Hospital Course - Lab Results Lab Results: Micro Results 10/16/18 23:50 Blood Blood Culture - Preliminary NO GROWTH AFTER 24 HOURS 10/16/18 16:45 Blood Blood Culture - Preliminary NO GROWTH AFTER 24 HOURS Most Recent Lab Values WBC 9.0 K/uL (4.8-10.8) 10/17/18 07:00 RBC 3.51 Mil/uL (3.80-5.20) L 10/17/18 07:00 Hgb 11.2 g/dL (12.0-16.0) L 10/17/18 07:00 Hct 34.5 % (34.0-47.0) 10/17/18 07:00 MCV 98.4 fl (81.0-99.0) D 10/17/18 07:00 MCH 31.8 pg (27.0-31.0) H 10/17/18 07:00 MCHC 32.3 g/dL (33.0-37.0) L 10/17/18 07:00 RDW 15.0 % (11.5-14.5) H 10/17/18 07:00 Plt Count 325 K/uL (130-400) 10/17/18 07:00 MPV 7.3 fl (7.2-11.7) 10/16/18 16:45 Neut % (Auto) 66.4 % (50.0-75.0) 10/16/18 16:45 Lymph % (Auto) 19.5 % (20.0-40.0) L 10/16/18 16:45 [place] % (Auto) 6.6 % (0.0-10.0) 10/16/18 16:45 Eos % (Auto) 6.5 % (0.0-4.0) H 10/16/18 16:45 Baso % (Auto) 1.0 % (0.0-2.0) 10/16/18 16:45 Neut # (Auto) 7.2 K/uL (1.8-7.0) H 10/16/18 16:45 Lymph # (Auto) 2.1 K/uL (1.0-4.3) 10/16/18 16:45 [place] # (Auto) 0.7 K/uL (0.0-0.8) 10/16/18 16:45 Eos # (Auto) 0.7 K/uL (0.0-0.7) 10/16/18 16:45 Baso # (Auto) 0.1 K/uL (0.0-0.2) 10/16/18 16:45 PT 11.1 Seconds (9.8-13.1) 10/16/18 16:45 INR 1.0 10/16/18 16:45 APTT 27.5 Seconds (25.6-37.1) 10/16/18 16:45 pO2 16 mm/Hg (30-55) L 10/16/18 17:08 VBG pH 7.30 (7.32-7.43) L 10/16/18 17:08 VBG pCO2 60 mmHg (40-60) 10/16/18 17:08 VBG HCO3 24.0 mmol/L 10/16/18 17:08 VBG Total CO2 31.3 mmol/L (22-28) H 10/16/18 17:08 VBG O2 Sat (Calc) 19.0 % (40-65) L 10/16/18 17:08 VBG Base Excess 1.6 mmol/L (0.0-2.0) 10/16/18 17:08 VBG Potassium 4.6 mmol/L (3.6-5.2) 10/16/18 17:08 Sodium 139.0 mmol/L (132-148) 10/16/18 17:08 Chloride 105.0 mmol/L (98-107) 10/16/18 17:08 Glucose 104 mg/dL (65-105) 10/16/18 17:08 Lactate 2.0 mmol/L (0.7-2.1) 10/16/18 17:08 FiO2 21.0 % 10/16/18 17:08 Sodium 140 mmol/l (132-148) 10/17/18 07:00 Potassium 3.9 MMOL/L (3.6-5.0) 10/17/18 07:00 Chloride 109 mmol/L (98-107) H 10/17/18 07:00 Carbon Dioxide 25 mmol/L (22-30) 10/17/18 07:00 Anion Gap 10 (10-20) 10/17/18 07:00 BUN 14 mg/dl (7-17) 10/17/18 07:00 Creatinine 0.7 mg/dl (0.7-1.2) 10/17/18 07:00 Est GFR ( Amer) > 60 10/17/18 07:00 Est GFR (Non-Af Amer) > 60 10/17/18 07:00 POC Glucose (mg/dL) 114 mg/dL (65-110) H 10/18/18 06:22 Random Glucose 132 mg/dL (65-105) H 10/17/18 07:00 Hemoglobin A1c 9.4 % (4.2-6.5) H 10/17/18 07:00 Calcium 8.8 mg/dL (8.4-10.2) 10/17/18 07:00 Phosphorus 4.1 mg/dl (2.5-4.5) 10/16/18 16:45 Magnesium 1.7 MG/DL (1.6-2.3) 10/16/18 16:45 Total Bilirubin 0.2 mg/dl (0.2-1.3) 10/16/18 16:45 AST 19 U/L (14-36) 10/16/18 16:45 ALT 14 U/L (9-52) 10/16/18 16:45 Alkaline Phosphatase 98 U/L (38-126) 10/16/18 16:45 Troponin I < 0.0120 ng/mL (0.00-0.120) 10/16/18 16:45 NT-Pro-B Natriuret Pep 185 pg/ml (0-900) 10/16/18 16:45 Total Protein 7.1 G/DL (6.3-8.2) 10/16/18 16:45 Albumin 3.8 g/dL (3.5-5.0) 10/16/18 16:45 Globulin 3.3 gm/dL (2.2-3.9) 10/16/18 16:45 Albumin/Globulin Ratio 1.2 (1.0-2.1) 10/16/18 16:45 Vitamin B12 443 pg/mL (239-931) 10/17/18 07:00 TSH 3rd Generation 1.59 mIU/ML (0.46-4.68) 10/17/18 07:00 Venous Blood Potassium 4.6 mmol/L (3.6-5.2) 10/16/18 17:08 Urine Color Straw (YELLOW) 10/16/18 21:00 Urine Clarity Clear (Clear) 10/16/18 21:00 Urine pH 6.0 (5.0-8.0) 10/16/18 21:00 Ur Specific [place] 1.029 (1.003-1.030) 10/16/18 21:00 Urine Protein Negative mg/dL (NEGATIVE) 10/16/18 21:00 Urine Glucose (UA) Neg mg/dL (NEGATIVE) 10/16/18 21:00 Urine Ketones Negative mg/dL (NEGATIVE) 10/16/18 21:00 Urine Blood Negative (NEGATIVE) 10/16/18 21:00 Urine Nitrate Negative (NEGATIVE) 10/16/18 21:00 Urine Bilirubin Negative (NEGATIVE) 10/16/18 21:00 Urine Urobilinogen 0.2-1.0 mg/dL (0.2-1.0) 10/16/18 21:00 Ur Leukocyte Esterase Neg [place]/uL (Negative) 10/16/18 21:00 Urine RBC (Auto) 1 /hpf (0-3) 10/16/18 21:00 Urine Microscopic WBC < 1 /hpf (0-5) 10/16/18 21:00 Ur Squamous Epith Cells < 1 /hpf (0-5) 10/16/18 21:00 - Hospital Course Hospital Course: 68 y/o F witha PMHx of HTN, DM, CAD, GERD, and anxiety was was admitted for evaluation and management of pre-syncope,hypotension, and left sided weakness. Pt has reported having these episodes for the past year and is currently getting worked up outpatient. All electrolytes were normal. Head CT and Brain MRI comple luis daniel with no acute findings noted. Pt was evaluated for orthostatic hypotension both on and off antihypertensive with negative results. Abdomen/Pelvis Ct no acute findings. Her EKG and troponin was normal. Super[employer]ising Pro[employer] records reviewed- as per [employer]el[employer] note, pt's syncopy id due to dehydration. Reduced anti- hypertensive medication. PLAN: >Pre-syncope/lightheadedness/Hypotension --Etiology unknown suspecting vasavogal (+prodrome) --Likely Vasovagal as pt reports prodrome of n/v, feeling flushed and lightheaded prior to passing out. Had tilt test completed outpatient with uncl ear results --Need to rule out CVA, Brain MRI reported no acute findings, mild chronic microvascular disease noted, head ct negative --S/P 3 L NSS bolus --Telemetry monitoring, no events noted --Maintenance fluids: IV NSS at 115mL/hr. --PT ordered to assess gait-- Home with services 3-5x/week, 2 weeks --Orthostathic BP taken at 1810: laying 133/72, Sitting 135/82, standing 130/70 >Diarrhea, episodic --Acute, pt reports transient episodes of vomiting and explosive diarrhea --Abdomen/Pelvis CT: Diverticulosis, otherwise normal -- Will send workup for Carcinoid syndrome, IBD, Stool Cx, Stool Leukocytes, Lactoferrin etc. Can be followed up outpatient --Electrolytes normal >Left Toe pain -Pt had recent surgery -No signs of acute joint infection -May be mild gout flare -NSAIDS for now, and monitor. >Essential HTN --Chronic --Will reduce Lisinopril to 10mg daily and COreg to 3.25mg BID >IDDM --Chronic,uncontrolled --HbA1c 9.5 (07/02/2018) --Hold Metformin 1000 mg due to GI symptoms --Home meds resumed: Nateglinide 120mg PO QD and Insulin Detemir 30 units SC BID --Insulin sliding scale and Hypoglycemia protocol >Hx x of CAD (Stable) -Home meds resumed: Plavix 75mg PO QD, Atorvastatin 80mg PO QD, ASA 81mg PO QD >Chronic pain/Neuropathy --Home meds resumed: Percocet >Anxiety (Chronic, stable) --Not on meds >DVT prophylaxis --Lovenox 40mg SC QD D/W Dr. Herron Discharge Exam - Head Exam Head Exam: NORMAL INSPECTION - Eye Exam Eye Exam: Normal appearance - ENT Exam ENT Exam: Mucous Membranes Moist - Respiratory Exam Respiratory Exam: Clear to PA & Lateral - Cardiovascular Exam Cardiovascular Exam: REGULAR RHYTHM - GI/Abdominal Exam GI & Abdominal Exam: Normal Bowel Sounds, Soft. absent: Tenderness - Extremities Exam Extremities exam: normal inspection - Neurological Exam Neurological exam: Alert, Oriented x3 - Psychiatric Exam Psychiatric exam: Normal Affect - Skin Skin Exam: Normal Color Discharge Plan - Discharge Medications Prescriptions: Carvedilol [Coreg] 3.125 mg PO BID 30 Days tab Lisinopril [Prinivil] 10 mg PO DAILY 30 Days tablet - Follow Up Plan Condition: FAIR Disposition: HOME/ ROUTINE Instructions: Syncope (Fainting) (DC), Low Blood Pressure (DC) Additional Instructions: johnnie con el Dr.Garcia yang 10/22/18 1:40pm johnnie con el cardiologo 10/30/18 11:00am [address] [place] [address] Referrals: Aki Herron MD [Family Provider] -
[2018-10-18] MEDS: Naproxen 500 MG TAB PO SCH (08:29)
[2018-10-18] MEDS: Insulin Detemir 100 Units/ml Inj SC SCH (08:30)
[2018-10-18] MEDS: Pantoprazole 40 mg EC Tab PO SCH (08:33)
[2018-10-18 12:45] VITALS: BP 128/76; PULSE 74; TEMP 97.8; O2SAT 97
== END 2018-10-18 13:00 | disposition home health service (06) ==
LOC: H.ER 15:52 → H.ERHOLD 21:12 → H.TEL 10-17 06:02
PROVIDERS: ADMIT Family Medicine; ATTEND Family Medicine
DX: I95.1 Orthostatic hypotension (principal); R42 Dizziness and giddiness; E11.65 Type 2 diabetes mellitus with hyperglycemia; E11.40 Type 2 diabetes mellitus with diabetic neuropathy, unspecified; G89.29 Other chronic pain; F41.8 Other specified anxiety disorders; R19.7 Diarrhea, unspecified; Z79.4 Long term (current) use of insulin; Z79.84 Long term (current) use of oral hypoglycemic drugs; E86.0 Dehydration; K29.70 Gastritis, unspecified, without bleeding; I10 Essential (primary) hypertension; I25.10 Atherosclerotic heart disease of native coronary artery without angina pectoris; E78.5 Hyperlipidemia, unspecified; E78.00 Pure hypercholesterolemia, unspecified; K21.9 Gastro-esophageal reflux disease without esophagitis; J45.909 Unspecified asthma, uncomplicated; M06.9 Rheumatoid arthritis, unspecified; M81.0 Age-related osteoporosis without current pathological fracture; Z79.02 Long term (current) use of antithrombotics/antiplatelets; Z79.82 Long term (current) use of aspirin; M54.5 Low back pain
CPT/HCPCS: 36415; 70450; 70553; 71045; 74177; 80048; 80053; 81003; 82607; 82803; 82948; 83036; 83735; 83880; 84100; 84443; 84484; 85025; 85027; 85610; 85730; 86316; 87040; 87086; 87389; 93005; 96361; 96372; 96374; 97116; 97161; 97530; 99285; A9579; G0378; G8978; G8979; J1650; J2405; J7030; Q9967